=== PATIENT | female | born 1945 | race Caucasian/White ===

== ENCOUNTER → 2023-11-23 07:42 | Outpatient (REF) | payer BC, SELFPAY | LOC: RCS 07:42 | PROVIDERS: ATTENDING PHYSICIAN Internal Medicine Cardiovascular Disease; FAMILY PHYSICIAN Nurse Practitioner | DX: R01.1 Cardiac murmur, unspecified (principal); I48.0 Paroxysmal atrial fibrillation; I34.0 Nonrheumatic mitral (valve) insufficiency; I07.1 Rheumatic tricuspid insufficiency | CPT/HCPCS: 93306 ==

== ENCOUNTER 2023-12-10 06:50 | Day surgery (SDC) | payer BC, SELFPAY ==
[2023-11-30 06:45] VITALS: BMI 25.9
[2023-11-30 07:32] LABS: % Basophils 0.7 % (0-2); % Eosinophils 1.5 % (0-6); % Immature Granulocytes 0.2 % (0-0.5); % Lymphocytes 34.7 % (20.5-51.1); % Monocytes 11.1 % (1.7-9.3); % Neutrophils 51.8 % (42.2-75.2); Absolute Eosinophils 0.1 10^3/uL (0-0.7); Absolute Lymphocytes 1.4 10^3/uL (1.2-3.4); Absolute Monocytes 0.5 10^3/uL (0.1-0.6); Absolute Neutrophils 2.1 10^3/uL (1.4-6.5); Hematocrit 39.7 % (37.0-47.0); Hemoglobin 13.1 g/dL (12.0-16.0); Mean Corpuscular Volume 93.9 fL (81.0-99.0); Mean Platelet Volume 11.1 fL (7.4-10.4); Nucleated Red Blood Cells % 0 %; Platelet Count 139 10^3/uL (130-400); Red Blood Cell Count 4.23 10^6/uL (4.20-5.40); Red Cell Dist. Width 13.9 % (11.5-14.5); White Blood Cell Count 4.1 10^3/uL (4.8-10.8)
--- NOTE | 2023-11-30 07:44 | HPS.HSE ---
Family Physician
-
Family Physician: SUNIL Martinez
Chief Complaint
-
Severe mitral regurgitation.
History of Present Illness
The patient is a 77 year old female presenting today for severe mitral regurgitation. This was confirmed through a recent echocardiogram on 11/23/2023. She does note dyspnea with heavy exertion, such as walking up stairs, likely secondary
to this diagnosis. She also has a history of atrial fibrillation, which is a compelling factor for treatment of her mitral valve. It is advised the patient proceed with a transesophageal echocardiogram and left and right cardiac catheterization at
this time in preparation for possible mitral valve repair or replacement in the near future. She denies any current complaints today such as chest pain, shortness of breath at rest, nausea, vomiting, diarrhea, lightheadedness, dizziness, cough, sore
throat, or fever.
Medical History
Past Medical History
Past Medical History: Reports Other
Additional Past Medical History:
1. Severe mitral regurgitation.
2. Mild-moderate tricuspid regurgitation.
3. Mild aortic regurgitation.
4. Hyperlipidemia.
5. Paroxysmal atrial fibrillation with palpitations, pharmacological therapy with Metoprolol Succinate, oral anticoagulation with Eliquis.
6. Colon polyps.
7. Ulcerative colitis, diagnosed 1964.
8. Basal cell carcinoma, status post MOHS.
9. Osteopenia.
10. Mild leukopenia.
11. Asymptomatic hypoglycemia.
Past Surgical History: Reports Other
Additional Past Surgical History:
1. Bilateral tubal ligation.
2. MOHS.
3. Multiple colonoscopies.
Social History
Tobacco: Non-smoker
Alcohol: None
Personal:
Living: Other (She lives in a 2 story home with her . )
Family History
Family History: Not pertinent
Allergies / Home Medications
Allergy/Medication List:
Home medications:
1. Eliquis 5 mg p.o. twice a day.
2. Calcium carbonate 500 mg p.o. daily.
3. Metoprolol Succinate 25 mg p.o. every evening.
Allergies: No known allergies.
Review of Systems
-
A 12 point ROS was completed and negative except as noted: Yes
Physical Exam
Vital Signs
Blood pressure 118/65. Heart rate 58. Respirations 18. Pulse ox 99% on room air.
Height 5 feet, 5.5 inches. Weight 71.7 kg. BMI 25.9.
Physical Exam
General: Well Developed, Well Nourished and No Apparent Distress
HEENT: NormoCephalic, Moist mucous membranes, Atraumatic and PERRLA
Respiratory: Clear
Cardiac: Bradycardia (Sinus ) and Murmur (Soft, 2/6)
GI: Soft, Non Tender and Non Distended
Musculoskeletal: Normal Gait & Station
Skin: Warm and Dry
Neuro: AO x 3 and Nonfocal/grossly intact
Laboratory Results
-
11/30/23 06:53
DIAGNOSTIC STUDIES as of 11/30/2023: Sodium 141. Potassium 4.7. BUN 34. Creatinine 0.8. Glucose 54. Calcium 9.6. AST 27. ALT 19. Albumin 4.1.
DIAGNOSTIC STUDIES as of 12/03/2023: Sodium 141. Potassium 4.3. BUN 24. Creatinine 0.81. Glucose 90. Calcium 9.4. Hemoglobin A1c 5.3.
EKG 11/30/2023: Sinus bradycardia with sinus arrhythmia. Left axis deviation. Septal infarct, age undetermined.
Echocardiogram 11/23/2023: Rhythm is in atrial fibrillation today, heart rate 110s. Normal left ventricular systolic function. LV ejection fraction is 55-60%. Severe mitral regurgitation. Likely secondary to annular dilation with severely dilated
left atrium. Mild aortic regurgitation. Mildly dilated right ventricle with normal systolic function. Moderate/severe tricuspid regurgitation. Mildly elevated PASP. Estimated pulmonary artery pressure of 42 mmHg, assuming a right atrial pressure of
15 mmHg. Ectatic proximal ascending aorta: 3.6 cm.
Impression/Plan
-
IMPRESSION/PLAN:
1. Severe mitral regurgitation: The patient is in need of transesophageal echocardiogram and left and right cardiac catheterization in preparation for potential mitral valve repair/replacement. Her transesophageal echocardiogram will take place on
12/10/[address] Nicho Peres. Her left and right cardiac catheterization will also take place on 12/10/[address] Orlin Pickard. The benefits and risks of the procedure have been explained to the patient. The patient understands these
risks and wishes to proceed. She is aware to hold her Eliquis 2 days prior to her upcoming procedure. She will take a full dose Aspirin the first day she holds her Eliquis. She will then transition to a baby Aspirin daily up to and including the day
of her procedure.
[2023-11-30 08:26] LABS: Glucose 54 mg/dl (70-99)
[2023-11-30 08:27] LABS: ALT (SGPT) 19 U/L (0-35); AST (SGOT) 27 U/L (14-36); Albumin 4.1 g/dl (3.5-5.0); Alkaline Phosphatase 70 U/L (38-126); Blood Urea Nitrogen 34 mg/dl (7-17); Calcium 9.6 mg/dl (8.4-10.2); Carbon Dioxide 27 mmol/L (22-30); Chloride 106 mmol/L (98-107); Estimated Creatinine Clearance 54 ml/min; Potassium 4.7 mmol/L (3.5-5.1); Sodium 141 mmol/L (135-145); Total Bilirubin 0.7 mg/dl (0.2-1.3); Total Protein 6.6 g/dl (6.3-8.2); eGFR > 60.00
--- NOTE | 2023-11-30 08:51 | W.SUR.PREOP ---
Addendum entered and electronically signed by Ximena Madsen PA-C 12/08/23 09:56:
Given her critically low glucose result, the patient instead followed up with her PCP, Kathleen Herrera, pre-operatively.
Repeat glucose 90 and hemoglobin A1c 5.3 on 12/03/2023.
Results scanned into [employer].
Patient stable for her procedure on 12/10/2023.
Original Note:
Pre-Operative Surgical Note
-
Pt had a critical blood glucose of 54 this AM.
She reportedly was fasting. Denies any previous known episodes of hypoglycemia.
No history of diabetes.
Denies any abnormal symptoms such as lightheadedness or dizziness. Feels overall 'well' today.
I did advise that she carry candy in the event she does experience symptoms of hypoglycemia. Also said juice would be helpful in increasing her blood glucose.
Symptoms of hypoglycemia to look out for were explained.
Given her critically low result, I will have the patient return for a repeat blood glucose closer to her procedure date.
[2023-12-10] VITALS (9 sets, daily range): BP systolic 114–159; BP diastolic 53–68; BMI 24.6
--- NOTE | 2023-12-10 09:46 | ITS.CL.CATH ---
[facility] - Catheterization
Cardiac Catheterization
Procedure Report:
CARDIAC CATHETERIZATION REPORT
Date of Procedure: 12/10/2023
Referring: Orlin Pickard D.O.
Indication: Symptomatic moderate/severe mitral valve regurgitation, severe tricuspid valve regurgitation.
PROCEDURE:
1. Right heart catheterization.
2. Left heart catheterization.
3. Coronary angiography.
ACCESS:
6 Chadian right radial artery.
5 Chadian right antecubital vein.
CATHETERS:
1. 5 Chadian balloon wedge.
2. 5 Chadian JL 3.5.
3. 5 Chadian JR4.
HEMODYNAMIC DATA
Weight (kg): 71.2
AO (s/d/x mmHg): 144/76/110
LV (s/x mmHg): 144/20
PCWP (a/v/x mmHg): 22//20
PA (s/d/x mmHg): 41//27
RV (s/x mmHg): 41/10
RA (a/v/x mmHg): 15/17/10
SVC SvO2 (%): 76.1
PA SvO2 (%): 77.9
SaO2 (%): 97.6
Hbg (g/dL): 13.1
CO (L/min): 4.26
CI (L/min/m2): 2.34
TPG (mmHg): 7
PVR (Ordoñez Units): 1.64
SVR (dynes*seconds*cm^-5): 1878
AVO2 Diff (Volume %): 3.51
AV gradient (x, mmHg): None.
AV area (cm2): Normal.
LEFT VENTRICULOGRAPHY: Not performed.
CORONARY ANGIOGRAPHY
Dominance: Right.
Left Main: Normal size, bifurcating vessel. There is no coronary artery disease.
LAD: Normal size vessel giving rise to 2 significant diagonals. There is no coronary artery disease.
Ramus: Congenitally absent.
Circumflex: Normal size, nondominant vessel giving rise to 1 large marginal. There is no coronary artery disease.
RCA: Normal size, dominant vessel. There is no coronary artery disease.
INTERVENTIONS
None.
Closure Device: Vascular band for the right radial artery, manual pressure for the right antecubital vein.
Radiation dose (mGy): 121.82
DAP (cm2.Gy): 7.9054
Fluoroscopy time (minutes): 2.3
Sedation time (minutes): 7
CONCLUSIONS:
1. Right dominant circulation with no coronary artery disease.
2. Moderately elevated filling pressures (LVEDP = 20 mmHg, PCWP = 20 mmHg at 71.2 kg).
3. 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
4. Severe mitral and tricuspid valve insufficiency by echocardiography.
RECOMMENDATIONS:
1. Expectant management after cardiac catheterization via right radial approach.
2. Limited weight bearing on the right wrist for one week.
3. Discussion with CT surgery regarding optimal valve repair strategy.
4. Start furosemide 20 mg p.o. daily for reduction of filling pressures.
5. BMP in 1 week.
Copy to: Mendel Muller M.D., Orlin Pickard D.O., SUNIL Martinez
Orlin Pickard, , FACC, FACP
== END 2023-12-10 12:53 | disposition home or self-care (01) ==
LOC: CATH 06:50
PROVIDERS: ATTENDING PHYSICIAN Internal Medicine; FAMILY PHYSICIAN Nurse Practitioner; OTHER PHYSICIAN Internal Medicine Cardiovascular Disease
DX: I08.3 Combined rheumatic disorders of mitral, aortic and tricuspid valves (principal); R06.09 Other forms of dyspnea; E78.5 Hyperlipidemia, unspecified; I48.0 Paroxysmal atrial fibrillation; I27.29 Other secondary pulmonary hypertension; Z85.828 Personal history of other malignant neoplasm of skin; Z79.01 Long term (current) use of anticoagulants
CPT/HCPCS: 93312; 93320; 93325; 36415; 80053; 85025; 93005; 93460; C1894; Q9967

== ENCOUNTER → 2024-01-02 08:11 | Outpatient (REF) | payer BC, SELFPAY | LOC: RAD 08:11 | PROVIDERS: ATTENDING PHYSICIAN Thoracic Surgery (Cardiothoracic Vascular Surgery); FAMILY PHYSICIAN Nurse Practitioner; REFERRING PHYSICIAN Internal Medicine Cardiovascular Disease | DX: I34.0 Nonrheumatic mitral (valve) insufficiency (principal); I36.1 Nonrheumatic tricuspid (valve) insufficiency; Z01.818 Encounter for other preprocedural examination | CPT/HCPCS: 71250 ==

== ENCOUNTER 2024-01-11 05:00 | Inpatient (IN) | payer BC, MEDICARE, SELFPAY ==
[2024-01-04 08:36] VITALS: BMI 27.2
[2024-01-04 09:24] LABS: APTT 30.4 Sec (23.4-35.0); INR 1.22; PT 15.2 Sec (11.4-14.6)
[2024-01-04 09:28] LABS: % Basophils 0.3 % (0-2); % Eosinophils 0.9 % (0-6); % Immature Granulocytes 0.3 % (0-0.5); % Lymphocytes 37.5 % (20.5-51.1); % Monocytes 9.7 % (1.7-9.3); % Neutrophils 51.3 % (42.2-75.2); Absolute Lymphocytes 1.2 10^3/uL (1.2-3.4); Absolute Monocytes 0.3 10^3/uL (0.1-0.6); Absolute Neutrophils 1.6 10^3/uL (1.4-6.5); Hematocrit 40.7 % (37.0-47.0); Hemoglobin 13.6 g/dL (12.0-16.0); Mean Corp Hgb Conc. 33.4 g/dL (33.0-37.0); Mean Corpuscular Hgb 30.8 pg (27.0-31.0); Mean Corpuscular Volume 92.1 fL (81.0-99.0); Mean Platelet Volume 11.7 fL (7.4-10.4); Nucleated Red Blood Cells % 0 %; Platelet Count 143 10^3/uL (130-400); Red Blood Cell Count 4.42 10^6/uL (4.20-5.40); Red Cell Dist. Width 13.2 % (11.5-14.5); White Blood Cell Count 3.2 10^3/uL (4.8-10.8)
[2024-01-04 10:10] LABS: ALT (SGPT) 23 U/L (0-35); AST (SGOT) 29 U/L (14-36); Albumin 4.4 g/dl (3.5-5.0); Alkaline Phosphatase 73 U/L (38-126); Blood Urea Nitrogen 29 mg/dl (7-17); Calcium 9.7 mg/dl (8.4-10.2); Carbon Dioxide 25 mmol/L (22-30); Chloride 105 mmol/L (98-107); Direct Bilirubin 0.1 mg/dl (0.0-0.4); Estimated Creatinine Clearance 56 ml/min; Glucose 85 mg/dl (70-99); Potassium 4.3 mmol/L (3.5-5.1); Sodium 137 mmol/L (135-145); Total Bilirubin 1.1 mg/dl (0.2-1.3); Total Protein 6.8 g/dl (6.3-8.2); eGFR > 60.00
[2024-01-04 10:27] LABS: Urine Albumin Negative (Neg - Trace); Urine Bilirubin Negative (Negative); Urine Character Clear (Clear); Urine Color Yellow; Urine Glucose Negative (Negative); Urine Ketone Negative (Negative); Urine Leukocyte Trace (Negative); Urine Nitrite Negative (Negative); Urine Occult Blood Negative (Negative); Urine Urobilinogen Negative (Neg - 1+); Urine pH 6.5 (5.0-9.0)
[2024-01-04 10:51] LABS: Urine Red Blood Cell 0-2 /HPF (0-2)
--- NOTE | 2024-01-04 11:09 | CM ---
spoke to pt in PAT's, we discussed pre op mitral and tricauspid valve teaching including driving and sternal restrictions. she is prev very indep, lives with her husb in a 2 story home with 1 step to enter. she denies any dme's. she has the cardiac
educ book, soap and instructions. she is agreeable to a f/u visit from the ct transitional care nurses after dc. plan is for mitral and tricuspid valve surgery 01/10, cm role explained and all questions answered.
[2024-01-11] VITALS (18 sets, daily range): BP systolic 77–135; BP diastolic 46–92; BMI 26.7
[2024-01-11] MEDS: LOPRESSOR 25 MG PO (05:50)
[2024-01-11] MEDS: MAGNESIUM OXIDE 500 MG PO (05:50)
[2024-01-11] MEDS: PROTONIX 40 MG PO (05:51)
[2024-01-11] MEDS: BACTROBAN 2% OINTMENT 1 APPLIC NASAL ×2 (05:52→19:57)
--- NOTE | 2024-01-11 06:18 | W.CVOR.SURPR ---
[facility] Surgeon Immed Pre Op
-
I have examined this patient prior to performance of the scheduled procedure.
The patient's condition is unchanged from the time of the dictated/written History and
Physical and the patient is able to undergo the scheduled procedure.
Sternotomy MVrR + TVr + LA MAZE + BRET E
[2024-01-11 07:32] LABS: Urine Albumin Negative (Neg - Trace); Urine Bilirubin Negative (Negative); Urine Character Clear (Clear); Urine Color Yellow; Urine Glucose Negative (Negative); Urine Ketone Negative (Negative); Urine Leukocyte Negative (Negative); Urine Nitrite Negative (Negative); Urine Occult Blood Negative (Negative); Urine Urobilinogen Negative (Neg - 1+)
[2024-01-11 07:35] LABS: ACT+ - POC 90 Seconds (82-134)
[2024-01-11 07:38] LABS: B.E. - POC -3.1 mmol/L; Glucose - POC 87 mg/dl (65-99); HCO3 - POC 22 mmol/L (21-29); Hematocrit - POC 35 % PCV (37-47); Hemodilution- POC No; Hemoglobin Calculated - POC 11.9; Ionized Calcium - POC 1.21 mmol/L (1.12-1.27); PCO2 - POC 36 mmHg (35-45); PO2 - POC 368 mmHg (80-100); POC Comment PRE; Potassium - POC 3.7 mmol/L (3.6-5.0); Sodium - POC 143 mmol/L (135-145); pH - POC 7.38 (7.35-7.45)
[2024-01-11 08:33] LABS: ACT+ - POC 650 Seconds (82-134)
[2024-01-11 08:48] LABS: B.E. - POC -1.3 mmol/L; Glucose - POC 91 mg/dl (65-99); HCO3 - POC 21 mmol/L (21-29); Hematocrit - POC 29 % PCV (37-47); Hemodilution- POC Yes; Hemoglobin Calculated - POC 9.8; Ionized Calcium - POC 0.94 mmol/L (1.12-1.27); PCO2 - POC 25 mmHg (35-45); PO2 - POC 352 mmHg (80-100); POC Comment CPB; Sodium - POC 140 mmol/L (135-145); pH - POC 7.52 (7.35-7.45)
[2024-01-11 08:52] LABS: ACT+ - POC 777 Seconds (82-134)
[2024-01-11 09:10] LABS: B.E. - POC 0.7 mmol/L; Glucose - POC 125 mg/dl (65-99); HCO3 - POC 26 mmol/L (21-29); Hematocrit - POC 34 % PCV (37-47); Hemodilution- POC Yes; Hemoglobin Calculated - POC 11.5; Ionized Calcium - POC 1.07 mmol/L (1.12-1.27); O2 Saturation %Calculated-POC 99.9 5 (92-96); PCO2 - POC 41 mmHg (35-45); PO2 - POC 304 mmHg (80-100); POC Comment CPB; Potassium - POC 4.9 mmol/L (3.6-5.0); Sodium - POC 142 mmol/L (135-145); pH - POC 7.41 (7.35-7.45)
[2024-01-11 09:17] LABS: ACT+ - POC 697 Seconds (82-134)
[2024-01-11 09:44] LABS: B.E. - POC -0.5 mmol/L; Glucose - POC 159 mg/dl (65-99); HCO3 - POC 25 mmol/L (21-29); Hematocrit - POC 34 % PCV (37-47); Hemodilution- POC Yes; Hemoglobin Calculated - POC 11.5; O2 Saturation %Calculated-POC 99.9 5 (92-96); PCO2 - POC 46 mmHg (35-45); PO2 - POC 291 mmHg (80-100); POC Comment REWARM; Potassium - POC 4.9 mmol/L (3.6-5.0); Sodium - POC 143 mmol/L (135-145); pH - POC 7.35 (7.35-7.45)
[2024-01-11 09:46] LABS: ACT+ - POC 555 Seconds (82-134)
[2024-01-11 09:57] LABS: ACT+ - POC 109 Seconds (82-134)
[2024-01-11 10:00] LABS: B.E. - POC -1.9 mmol/L; Glucose - POC 145 mg/dl (65-99); HCO3 - POC 23 mmol/L (21-29); Hematocrit - POC 34 % PCV (37-47); Hemodilution- POC Yes; Hemoglobin Calculated - POC 11.4; Ionized Calcium - POC 1.43 mmol/L (1.12-1.27); O2 Saturation %Calculated-POC 99.9 5 (92-96); PCO2 - POC 39 mmHg (35-45); PO2 - POC 330 mmHg (80-100); POC Comment POST; Potassium - POC 4.5 mmol/L (3.6-5.0); Sodium - POC 143 mmol/L (135-145); pH - POC 7.38 (7.35-7.45)
--- NOTE | 2024-01-11 10:37 | W.PN.CT.SURG ---
CT Surgery Operative Note
-
CARDIAC SURGERY OPERATIVE REPORT
Preoperative Diagnosis: Type I and II mitral valve dysfunction with severe insufficiency with paroxysmal atrial fibrillation
Postoperative Diagnosis: Same
Procedure(s) Performed:
1. Standard sternotomy with aortic bicaval cannulation
2. Simple mitral valve repair [ring annuloplasty, 32 mm]
3. Tricuspid valve repair [30 mm band annuloplasty]
4. Open surgical ablation [left atrial maze using combination of RF ablation and cryo ablation]
5. Left atrial appendage exclusion [35 mm clip]
6. Placement of temporary atrial and ventricular pacing wires
7. Transesophageal echocardiography
Date of Surgery: 01/11/24
Comorbidities:
1. Paroxysmal atrial fibrillation
2. 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
3. HTN
4. HLD
5. Ulcerative colitis
6. Osteoporosis
Attending Surgeon: Mendel Muller MD, MS
Assistants: Gabriela Banegas PA-C (present and necessary to first aid instructor, retraction, suction, exposure, suture management, and wound closure under my direction)
Anesthesiology: Nirmal Orozco MD and Blane Hernandez CRNA
Scrub and Circulating RNs: Akanksha Yung RN, Lito Barrera RN
Calender Let Off Operator: Cassandra Obando CCP
Anesthesia: GETA
EBL: per perfusion records
Products: None
CPB Time: 90 minutes
Aortic Cross Clamp Time: 68 minutes
Indication(s) for Procedures: This is a 78-year-old female who recent developed worsening symptoms of shortness of breath and fatigue. She has known mitral valve insufficiency with paroxysmal atrial relation that she states she only knew about
starting in February 2023. Based on the size. Bilateral atria, I suspect she has had long-term atrial fibrillation that been undiagnosed. She had a mixture of type I and type II pathology of her mitral valve including annular dilatation and
bileaflet prolapse. She also had secondary tricuspid valve insufficiency due to annular dilatation. Her STS risk was calculated to be acceptable and she was offered double valve repair with left atrial ablation and left atrial appendage exclusion.
She accepted the risk and so we proceeded
Aortic Valve Description: Mild central aortic valve insufficiency, trileaflet.
Mitral Valve Description: Relatively normal-appearing leaflets, there was mild bileaflet prolapse with annular dilatation in both the AP and by commissural views. Anterior leaflet was relatively short at 2.8 cm.
Tricuspid Valve Description: Massively dilated annulus with eccentric tricuspid valve insufficiency directed towards the septal leaflet. The leaflets themselves appear to be normal.
Findings: Left ventricular ejection fraction preoperatively was normal with an EF of approximately 60% and no regional wall motion abnormalities. Following surgery her EF remained the same with no new regional wall motion abnormalities. RV was
normal in size and function. Her mitral valve was asymmetrically dilated mostly towards the P2 and P3 region. There is also dilated in the AP and by commissural aspects. The valve was repaired using a 32 mm ring annuloplasty secured in place with
15 nonpledgeted 2 Ethibond sutures using core knots. Dynamic inflation of the left ventricle demonstrated a competent mitral valve with good coaptation height. The tricuspid valve was repaired using a total of 10 nonpledgeted 2 Ethibond sutures
securing a [address] from the mid septal portion to the anterior septal commissure. Dynamic inflation of the RV demonstrated a competent valve with decent coaptation. After coming down on cardiopulmonary bypass, the mitral valve had no
residual insufficiency with a mean gradient of 1 across the valve. The tricuspid valve had none to trace residual tricuspid valve insufficiency with a mean gradient of 1. There is normal excursion of both leaflets on the mitral valve with no
systolic anterior motion. Left atrial appendage was verified to be free of any thrombus or debris preoperatively and totally occlusive flush the base with no residual color flow on Doppler. She was in sinus rhythm coming off cardiopulmonary
bypass, did not require any inotropic support, did not require any atrial ventricular pacing. No products were given. An open surgical ablation was performed using a combination of RF and cryoablation of the left atrium with the below listed
lesion set.
Ablation Lines:
MAZE Lesion Sets:
1. Box lesion to posterior LA wall
2. BRET lesion + BRET Exclusion + [employer] [place]
3. Coronary sinus lesion
4. Posterior mitral annular line toward P2/P3
Specimen(s): None.
Prosthesis:
1. BRET Clip, SN [id number]
2. 32mm Mason Physio II Annuloplasty Ring, SN [id number]
3. 30mm Medtronic Tri-Ad Annuloplasty Band, SN [id number]
Description of Procedure: The patient was taken to the operating room. Their identity and procedure to be performed were verified and they were positioned supine on the operating table. Induction via general anesthesia with endotracheal intubation
was performed and central venous access and arterial monitoring were inserted. A preoperative transesophageal echocardiogram was performed to assess cardiac function and valvular function. The patient was then prepped and draped from chin to feet in
a sterile fashion. A preoperative time-out was performed with all members of the team present. A midline chest incision was performed along with median sternotomy. The innominate vein was isolated. Full heparinization was given (a total of 35,000
units). We created a pericardial well. The aortic cannulation site was chosen where it was soft, pliable, and free of calcium. Cannulation was performed with an arterial cannula in the ascending aorta, angled metal tip cannular in the superior vena
cava and straight bendable cannula in the inferior vena cava. The arterial cannula line had an appropriate bounce and correlating pressures. Next, a root vent/antegrade cannula was inserted into the ascending aorta. The ACT was confirmed to be over
400 and retrograde autologous priming was performed before commencing cardiopulmonary bypass. The pulmonary artery was away from the aorta to facilitate a clamp site. Sondergaard�s groove was developed after creating the oblique sinus. I
then the SVC off the right pulmonary artery. We then used the encompass ablation clamp across the transverse sinus and oblique sinuses to perform 3 successful pairs of ablations effectively producing the posterior wall ablation with
PVI's. The aortic cross-clamp was placed after decreasing the flow on the bypass and mean arterial pressure. A total of 1.2L initial dose of antegrade Del-Nido cardioplegia solution was given and planned for re-dosing every 75 minutes as necessary.
There was rapid electro-mechanical arrest of the heart at 300 cc of cardioplegia. The left ventricle was observed for distention on echocardiogram and manual palpation. Cold slush was placed into a lap on the RV and we systemically cooled to 34
degrees centigrade.
Carbon dioxide was used to flood the field. I then medialized the heart in order to expose the left atrial appendage. The tip of the appendage was cut off and using the RF clamp I performed the left atrial appendage line down to connect the
pulmonary vein isolation line. It was then sized to a 35 mm clip which was applied flush to the base. Next, the mitral valve was accessed via the left atrium at the intra-atrial groove followed by valve analysis. An additional coronary sinus
lesion using cryo and a mitral annular line was performed here ensuring that they overlapped. The mitral valve was repaired as described above. The left ventricular vent was repositioned across the mitral valve into the left ventricular and the
left atrium was closed with a 3-0 prolene.
While the heart was still arrested, I opened the right atrium longitudinally after isolating the IVC and SVC with Vesseloops. Annular sutures were placed starting at the mid-portion of the septal leaflet avoiding the AV node and working
counter-clockwise toward the anteroseptal leaflet commissure. The tricuspid valve was repaired as described above and the swan was manually replaced into the RVOT. The patient was placed into steep Trendelenburg and the aortic cross clamp was
removed and flows were slowly brought back up while still under SVC/IVC isolation. The RA suture line was closed in two layers with 5-0 prolene in a running fashion with the clamp off and the heart beating.
The left atrial suture line was hemostatic. Transesophageal echocardiography revealed no evidence of systolic anterior motion and ventricular function was normal. Once de-airing was satisfactory the root vent was removed. After verifying acceptable
parameters, we initiated weaning from cardiopulmonary bypass. Once we were off cardiopulmonary bypass, the venous cannulas was clamped and removed sequentially. A test dose of protamine was administered and the patient was monitored for any adverse
reaction before resuming protamine. Once half of the protamine dose was delivered, pump suckers were turned off and the systolic blood pressure was lowered for aortic decannulation. The aortic cannula was removed and purse strings were tied down.
All cannulation sites were oversewn with a 4-0 prolene. The left atrial suture line was inspected and hemostasis was confirmed. Mediastinal hemostasis was obtained. Two #24 Brett drains were placed within the pericardium and a single #19 Brett into
the right hemithorax. The sternum was approximated with four #7 single and three #8 double stainless steel wires. Fascia was approximated with #1 vicryl suture. The subcutaneous, dermis and epidermis were closed in layers in a running fashion. The
skin wound was cleansed and dressed.
All instrument, sponge, and needle counts were confirmed to be correct x 2 at the end of the operation. The patient was transferred to the cardiac intensive care unit in critical but stable condition.
I, Dr. Mendel Muller, was present, scrubbed for, and performed all critical elements of this procedure.
Mendel Muller MD, MS
Cardiothoracic Surgeon
[facility]
This dictation was created using the [employer] dictation system. Please excuse any grammatical, typographical, or 'sound alike' errors
[2024-01-11 11:00] LABS: Glucose - Point of Care 133 mg/dl (70-99)
--- NOTE | 2024-01-11 11:00 | PTCARENOTE ---
Received patient from [facility] at 1045. Pt intubated and sedated on precedex gtt at 0.5mcg/kg/hr. Pt unresponsive. 8.0 ETT 24cm at the lip. SIMV 60% 12 500 5/5. Pt not over breathing the vent yet. POX 99%. Mediastinal chest tubes x2 y-sited to 1 atrium
to -20cm suction draining red fluid. Right pleural chest tube to -20cm suction draining red fluid. No air leaks, tidaling, or crepitus noted. Output WNL. SB on tele with rates in the 40s. BP supported with levophed on arrival and then controlled
with cardene per orders. CI 1.82, CT ENGINEERING SYSTEMS ANALYST notified. PA pressures 30s-40s/10s. CVP 12. Epicardial AV wires to back up, then per CT ENGINEERING SYSTEMS ANALYST, A-pacing initiated at 70/6/0.5. Bilateral radial and DP pulses palpable. +1 edema to bilateral ankles. Abdomen soft,
round, nontender. Hypoactive BS. Paris catheter intact draining adequate amounts of clear yellow urine. Sternal incision approximated with skin glue, pressure dressing noted to top of sternal incision, CDI. CT sites covered and dressing CDI. Right
IJ cordis and swan floated to 47cm. Right radial ashwini intact. All lines flushed, leveled, and zeroed. Right wrist 20g PIV intact. Insulin gtt infusing per Critical Care Glycemic Protocol. NSS KVOx2 infusing. See MAR for medication administration.
See worklist for complete nursing assessment. Post of labs, EKG, and CXR obtained.
[2024-01-11 11:09] LABS: B.E. -2.7 mmol/L; HCO3 21.8 mmol/L (21-28); Ionized Calcium 1.25 mMOL/L (1.15-1.33); O2 Saturation % 99.8 % (94-98); PCO2 36 mmHg (32-35); PO2 204 mmHg (83-108); Potassium 4.3 mMOL/L (3.5-5.1); Sodium 138 mMOL/L (136-145); pH 7.39 (7.35-7.45)
[2024-01-11 11:11] LABS: Hematocrit 32.7 % (37.0-47.0); Hemoglobin 11.1 g/dL (12.0-16.0); Platelet Count 99 10^3/uL (130-400)
--- NOTE | 2024-01-11 11:15 | PTCARENOTE ---
Per CT ACADEMIC ASSISTANT, need to pull ETT 2cm out, RT at bedside to do so. Repeat CXR ordered.
--- NOTE | 2024-01-11 11:15 | W.PN.CD ---
Addendum entered and electronically signed by Orlin Pickard DO 01/11/24 14:34:
Attestation: I have seen and examined the patient. I can confirm Ms. Pennington's findings and I agree with her assessment and plan as documented.
78-year-old female with paroxysmal atrial fibrillation, moderate to severe MR and moderate TR admitted for elective to valve repair.
The patient underwent successful ring annuloplasty of the mitral valve (#32 Mason physio 2 annuloplasty ring, serial #[id number]) and tricuspid valve (#30 Medtronic triad annuloplasty band, serial #[id number]) with left atrial MAZE and left atrial
appendage exclusion (#35 AtriClip, serial #[id number]).
She is seen in the CVICU. She is currently requiring norepinephrine 2 mcg/kg/min with satisfactory mean arterial pressure and cardiac index. She is currently on CPAP protocol and ABG shows that she is ready to extubate.
Continue routine postoperative care.
Maintain MAP >65 mmHg, cardiac index >2.2 L/min/m�.
Extubate when appropriate.
Chest tube/pain control per CT surgery.
Original Note:
Today's Communication / Plan
-
Follow telemetry
Impression / Plan
-
BACKGROUND: 78F with paroxysmal atrial fibrillation, moderate to severe mitral regurgitation, and moderate tricuspid regurgitation who presents for mitral valve repair
Civil Clerk: Dr. Pickard
Mitral valve repair [ring annuloplasty, 32 mm] and tricuspid valve repair [30 mm band annuloplasty] 01/11/[address] Muller
-Post valve repair EF unchanged without RWMA
-Postrepair MV mean gradient of 1, tricuspid valve with known to trace residual TR
-CI improved with pacing at 70bpm
-EKG with sinus bradycardia, EKG in am
Paroxysmal atrial fibrillation
-She had an open surgical ablation with valve repairs [left atrial maze using combination of RF ablation and cryo ablation]
-S/P BRET clip (35mm)
-Resumption of oral anticoagulation per surgery
SUBJECTIVE:
Intubated and sedated on mechanical ventilation.
Operative notes reviewed
Physical Exam
Vital Signs/Labs
Vital Signs
Temp Pulse Resp BP Pulse Ox
96.5 F L 80 12 119/67 99
01/11/24 11:00 01/11/24 11:05 01/11/24 11:00 01/11/24 11:00 01/11/24 11:05
01/10/24 01/11/24 01/12/24
06:59 06:59 06:59
Actual Weight 70.4 kg
PT 15.2 Sec (11.4-14.6) H 01/04/24 08:46
INR 1.22 01/04/24 08:46
APTT 30.4 Sec (23.4-35.0) 01/04/24 08:46
Physical Exam
Constitutional: No acute distress and Comfortable
EENT: Anicteric and Moist mucous membranes
Cardiovascular: Rhythm & rate is regular, Pedal edema is absent and S1S2 is normal
Respiratory: Lungs clear to auscul. and Other (ETT to mechanical ventilation)
GI: Soft, Distention absent and Flat
Neuro/Psych: Other (sedated but able to nod head)
Other: Skin (warm and dry without edema)
Data Reviewed
-
Date of Service: January 11, 2024
[2024-01-11 11:16] LABS: PT 16.9 Sec (11.4-14.6)
[2024-01-11 11:17] LABS: APTT 31.2 Sec (23.4-35.0)
[2024-01-11] MEDS: ANCEF 10 IV ×2 (11:19)
[2024-01-11] MEDS: NEURONTIN PO (11:19)
[2024-01-11] MEDS: NSS 500 IV (11:20)
[2024-01-11 11:25] LABS: Blood Urea Nitrogen 18 mg/dl (7-17); Estimated Creatinine Clearance 57 ml/min; Glucose 133 mg/dl (70-99); Magnesium 2.6 mg/dl (1.6-2.3)
--- NOTE | 2024-01-11 11:28 | W.PN.UPDATE ---
Update Note
Progress Note Update
78-year-old female was electively admitted on 01/11/2024 for mitral and tricuspid valve surgery due to severe mitral regurgitation and moderate tricuspid return agitation
IV fluids: 2000
U.O.:� 600
UF:� 2000
Blood:� none
Wires:� 2A/2V wires
Inotropes:� none
Pressors:� Levo @ 1
Sedatives:� Precedex
�
NEURO: sedated on Precedex, pupils +2mm B/L
RESP: #8OT @23cm> 500/60%/14/5. Lungs clear B/L. 2 mediastinal (50cc on arrival) and R pleural (0cc on arrival) chest tubes to -20cm suction. Sanguineous drainage
CV: RRR (SB @ 48) +S1, S2, no S3, no�rub, no murmur. Dermabond to median sternotomy. RIJ w/[place] locked @ 48cm. PA 30/; CVP 6; CI 1.82
ABD: round, soft, no BS
EXT: no edema, +2/4 DP pulses B/L, no femoral bruit, left radial A-line intact
: [place] with clear yellow urine
�
A/P: POD #0 s/p mitral valve repair #32 mm ring, tricuspid valve repair #30 mm band, open surgical ablation [left atrial maze using combination of RF ablation and cryo ablation], and left atrial appendage exclusion #35 mm clip
NEO: EF�65%, no MR, MV 3/1, no TR, TV 2/1. Very small PFO w/L>R shunt
- ETT low>repositioned
- wean and extubate
- will need instruction regarding antibiotic prophylaxis for dental and invasive procedures
- check TTE pre-discharge
- pull temporary pacing wires prior to chest tube removal
# PAF
CHADs-VASc score: 4. Stroke risk was 4.8% per year in >90,000 patients (the [place] Atrial Fibrillation Cohort Study) and 6.7% risk of stroke/TIA/systemic embolism
�- on Eliquis and Toprol at home
# acute surgical blood loss anemia-expected
- Hb 11.1>trend CBC
�
--- NOTE | 2024-01-11 11:39 | CM ---
Chart reviewed. Patient is in the OR today. Patient is independent of ADLS, lives with her in a 2 STH, 1 LORENA, 0 DME. Plan is for the patient to return home with CT Transitional RN. CM to follow
--- NOTE | 2024-01-11 11:47 | CON.INTV ---
Consultation
Consultation Request
Date/Time Consultation Requested: 01/10
Date/Time Consultation Performed: 01/10
Reason for Consultation: Critical care
Medical History
-
History of Present Illness:
History obtained from the chart as patient is currently intubated. 78-year-old female with history of mitral valve disease, paroxysmal atrial fibrillation. Patient has noticed progressive worsening of shortness of breath over the last year,
decreased stamina. Recent workup revealed progressive mitral valve disease. Patient is now status post sternotomy, simple mitral valve repair with ring annuloplasty, tricuspid valve repair, open surgical ablation, left atrial appendage exclusion.
Cardiopulmonary bypass time 90 minutes. We are asked to help from critical care standpoint postoperatively.
Presently, patient is waking up, on IMV, volume-cycled ventilation. She is spontaneously moving extremities, nodding head appropriately.
.
PMH: Osteoporosis, ulcerative colitis, hyperlipidemia. History of bilateral tubal ligation
Past Medical History
Past Medical History: None (See above)
Past Surgical History: None (See above)
Social History
Tobacco: Non-smoker
Alcohol: None
Drug: None
Personal:
Living: With Family
Employment: Retired
Family History
Family History: Reviewed & Not Pertinent (Father at age 92, mother with breast cancer and diabetes. Sister with history of stroke/PE, brother with heart disease)
Allergies / Home Medications
Allergies
Allergy/AdvReac Type Severity Reaction Status Date / Time
No Known Allergies Allergy Verified 01/01/24 11:05
Home Medications
�Medication �Instructions �Recorded �Confirmed �Last Taken �Type
apixaban 5 mg tablet (Eliquis) 5 mg PO BID #60 tabs 03/12/23 01/11/24 01/07/24 08:00 Rx
metoprolol succinate 25 mg 25 mg PO QPM 11/26/23 01/11/24 2 Days Ago History
tablet,extended release 24 hr ~01/09/24
furosemide 20 mg tablet (Lasix) 20 mg PO DAILY #90 tabs 12/10/23 01/11/24 2 Days Ago Rx
~01/09/24
calcium 400 mg 1 tab PO DAILY 01/01/24 01/11/24 3 Days Ago History
(carbonate)-magnesium 167 mg ~01/08/24
(oxide)-D3 133 unit tablet
(Calcium Magnesium plus D)
Review of Systems
-
Unable to Obtain full review of systems at this time due to: Patient Intubation
Vitals / Labs / Diagnostic Testing
Vital Signs
Temp Pulse Resp BP Pulse Ox
96.5 F L 80 12 119/67 97
01/11/24 11:00 01/11/24 11:05 01/11/24 11:00 01/11/24 11:00 01/11/24 11:20
Lab Data
01/11/24 10:56
Laboratory Results
01/11/24
10:56
PT 16.9 H
INR 1.40
APTT 31.2
pH 7.39
pCO2 36 H
pO2 204 H
HCO3 21.8
O2 Delivery Level
Diagnostic Testing:
Physical Exam
-
HEENT: Normocephalic, Anicteric and Other (Right IJ, right upper extremity A-line)
Cardiovascular: S1/S2, Regular Rhythm and Peripheral Edema (n)
Respiratory: Wheeze (n), Rales (n), Rhonchi (n) and Non-Labored Respirations
GI: Soft, Non Distended and Non Tender
Neurology: Other (Sedated but waking up, moving extremities)
Skin: Good Color and Other (n)
General: Comfortable
Assessment
-
78-year-old female with history of paroxysmal atrial fibrillation, mild pulm hypertension, mitral valve disease with progressive shortness of breath x 1 year, now status post mitral valve repair and tricuspid valve repair, open surgical ablation
01/11/2024. We are asked to help from critical care standpoint
S/p mitral valve repair (ring annuloplasty)
Tricuspid valve repair (annuloplasty)
01/11/2024
Severe mitral regurgitation/tricuspid regurgitation with progressive symptoms
Normal biventricular function, PA pressure 40's per RHC
Paroxysmal atrial fibrillation
s/p MAZE, RF ablation and cryoablation
s/p BRET clip
On Eliquis preadmission
Small PFO with sjeq-er-[id number] flow postoperative NEO
Conditions present prior to admission
Hyperlipidemia
Ulcerative colitis
Osteoporosis
Plan/recommendations
At this time, patient remains critically ill but stable.
Remains on volume-cycled ventilation, airway pressures adequate.
Chest x-ray unremarkable, no acute findings, no pneumothorax. ET tube appropriate
Remains on norepinephrine at 2 mcg, sedated with Precedex
Has not required any blood products
Chest tube output minimal
Required atrial pacing for bradycardia
Moving forward
Continue with management per CT surgery
Patient is waking up, moving extremities, nodding head appropriately
Anticipate extubation soon per CT surgery protocol
Follow hemoglobin, chest tube output
Follow blood sugars
Postoperative NEO with normal biventricular function, EF 65%, improved from 50% preoperatively
Small PFO is noted with [id number]-rj-[id number] flow
EKG postoperatively with bradycardia, now with atrial paced rhythm. Follow
Resume anticoagulation per CT surgery
Reviewed with critical care nursing, respiratory care
Will follow
TCCT 31 min
--- NOTE | 2024-01-11 11:50 | PTCARENOTE ---
Pt awakens spontaneously. Able to shake head yes/no appropriately. Able squeeze hands/wiggle toes to commands. Precedex turned off per orders. Awaiting more spontaneous breaths prior to cpap trial.
--- NOTE | 2024-01-11 12:00 | PTCARENOTE ---
Cpap trial attempted by RT. Pt apneic. Resumed SIMV settings.
[2024-01-11 12:03] LABS: Glucose - Point of Care 120 mg/dl (70-99)
[2024-01-11] MEDS: CARDENE 200 IV (12:07)
--- NOTE | 2024-01-11 12:55 | PTCARENOTE ---
Multiple apnea episodes on cpap trial. RT notified and placed back on SIMV settings. POX 98%.
[2024-01-11 13:06] LABS: Glucose - Point of Care 101 mg/dl (70-99)
[2024-01-11] MEDS: TYLENOL PO (13:15)
--- NOTE | 2024-01-11 13:40 | PTCARENOTE ---
RT at bedside to attempt cpap trial again, POX 97%.
[2024-01-11] MEDS: OFIRMEV 100 IV (13:41)
[2024-01-11 14:02] LABS: Glucose - Point of Care 90 mg/dl (70-99)
[2024-01-11 14:17] LABS: B.E. -2.9 mmol/L; HCO3 22.6 mmol/L (21-28); PCO2 41 mmHg (32-35); PO2 161 mmHg (83-108); Potassium 3.7 mMOL/L (3.5-5.1); pH 7.35 (7.35-7.45)
--- NOTE | 2024-01-11 14:30 | PTCARENOTE ---
Pt extubated 1430. POX 98% on 6L NC. Pt able to state her name and . IS completed to 500mL. Pt tolerated. Family at bedside.
--- NOTE | 2024-01-11 14:36 | RESPNOTE ---
patient extubated at 1430 without incident. 98% on 6L.
[2024-01-11 15:04] LABS: Glucose - Point of Care 90 mg/dl (70-99)
[2024-01-11] MEDS: KCL 50 IV ×2 (15:09→16:07)
[2024-01-11] MEDS: PACERONE PO (15:23)
[2024-01-11 15:29] LABS: Hematocrit 35.7 % (37.0-47.0); Hemoglobin 12.1 g/dL (12.0-16.0); Platelet Count 143 10^3/uL (130-400)
[2024-01-11] MEDS: TORADOL 15 MG IV (15:32)
[2024-01-11] MEDS: NEURONTIN 100 MG PO ×2 (15:33→21:55)
[2024-01-11] MEDS: LOW STRENGTH ASPIRIN 81 MG PO (15:33)
[2024-01-11] MEDS: ANCEF 5 IV (15:33)
[2024-01-11] MEDS: ROXICODONE 5 MG PO (16:03)
[2024-01-11 17:01] LABS: Glucose - Point of Care 109 mg/dl (70-99)
[2024-01-11] MEDS: FLEXERIL 5 MG PO (18:12)
[2024-01-11 18:58] LABS: Glucose - Point of Care 91 mg/dl (70-99)
--- NOTE | 2024-01-11 19:30 | PTCARENOTE ---
Received pt from daysksft; pt is resting in bed, AAOx4, states pain is 7/10, see MAR; 100% A paced on monitor, VSS; heart sounds audible, rub present, radial and DP pulses palpable, trace SY, temp epicardial AV-wires set to AAI rate of 80, MA of
60, Mv of 0.5; lung sounds clear, diminished at b/l bases, spo2 95% on 2LNC, x2 MS CT and right pleural to -20 wall suction, no air leaks, no tidaling, no crepitus; hypoactive BS x4 quadrants, abdomen soft non tender; pt voiding clear yellow urine
via blackburn catheter; Surgical sites maintained; Right IJ cordis, swan at 47, right radial A-line, and PIV all maintained, leveled, and zeroed; insulin and levophed gtt infusing; call webster within reach; will continue to monitor.
[2024-01-11] MEDS: SENOKOT-S 1 TABLET PO (19:56)
[2024-01-11] MEDS: DILAUDID 0.25 MG IV (19:56)
[2024-01-11] MEDS: SODIUM BICARBONATE 50 MEQ IV (20:40)
[2024-01-11 20:47] LABS: Glucose - Point of Care 96 mg/dl (70-99)
[2024-01-11] MEDS: TYLENOL 1000 MG PO (21:55)
--- NOTE | 2024-01-11 22:20 | PTCARENOTE ---
Pt assessment unchanged; pt resting comfortably in bed; 100% A paced on monitor, VSS; Bicarb ordered and given; Levo off @ 1945, pt's BP has tolerating, MAP >65; CI has been > 2 throughout the night, see VS for details; call webster within reach; will
continue to monitor.
[2024-01-11 22:48] LABS: Glucose - Point of Care 91 mg/dl (70-99)
--- NOTE | 2024-01-11 23:00 | PTCARENOTE ---
report received from previous RN, assumed care of pt. walking rounds done. pt in bed, AAOx4. pt denies any pain at this time. A.paced on monitor via epicardial wires, set to AAI 80. B/L radial and DP pulses palpable. heart tones clear, +rub. RT
radial art line intact, SBP 110's. RIJ cordis + [place] intact w KVOs infusing. last CI 2.66. PAPs ~30s/10s. CVP ~10. B/L breath sounds present. POX 99% on 2LNC. IS encouraged. CT x3 intact to -20cm wall suction, drainage WNL, no air leak present.
hypoactive bowel sounds present. pt tolerating ice chips. Insulin gtt infusing per glycemic protocol. blackburn catheter intact, draining CYU. UO adequate. all surgical sites stable. turning/repositioning pt Q2H and as needed. see worklist for full
assessment, VS, and interventions. pt resting comfortably.
[2024-01-12] VITALS (21 sets, daily range): BP systolic 93–120; BP diastolic 52–71; PULSE 85; O2SAT 96–99; BMI 27.1
[2024-01-12] MEDS: DILAUDID 0.5 MG IV (00:09)
[2024-01-12] MEDS: ANCEF 5 IV ×2 (00:10→08:47)
[2024-01-12 00:19] LABS: Glucose - Point of Care 99 mg/dl (70-99)
--- NOTE | 2024-01-12 01:06 | W.PN.CT ---
Today's Communication / Plan
-
Plan:
-No major issues overnight. Hemodynamically and neurologically intact
-Successfully extubated on 01/11/24 @ 1430
-Weaned off of Levophed gtt overnight, remains on insulin gtt per protocol. Holding AM dose of Lopressor and Amiodarone given soft BP/bradycardia overnight
-Last CI 2.5, U/O since OR 950 mL
-Required A-Pacing overnight d/t postop bradycardia with low indices. Currently in NSR @ 76 bpm. Appears to be in rate controlled a-fib @ 0615 when OOB into chair
-Cont. current meds (ASA, held Amiodarone last night d/t bradycardia, will likely resume Eliquis on POD#4 for hx PAF)
-Monitor chest tube output: 2meds 125/295, R pleurals 25/95
-D/C'd swan and a-line this AM @ 0445
-D/C'd blackburn @ 0600
-Telemetry phase today once off insulin gtt per protocol
-Maintain cordis
-Maintain temporary PW (will likely pull in 1-2 days)
-Wean off of O2 as tolerated
-Encourage use of IS
-OOB into chair/Ambulate
-Will repeat echo to reassess MV repair/TV repair before d/c home
Assessment / Plan
-
Assessment:
-S/p Standard sternotomy with aortic bicaval cannulation/Simple mitral valve repair [ring annuloplasty, 32 mm]/Tricuspid valve repair [30 mm band annuloplasty]/Open surgical ablation [left atrial maze using combination of RF ablation and cryo
ablation]/Left atrial appendage exclusion [35 mm clip], by Dr. Muller, 01/11/2024, pod#1
-Severe MR
-Severe TR
-PAF (on Eliquis @ home)
-Mild AI
-Dilated Asc. Aorta (3.3 cm)
-Small PFO
-LVEF 55% preop, improved to 65% postop per intraop NEO
-HTN
-HLD
-Ulcerative colitis
-Osteoporosis
-BCC S/p Moh's
-S/P b/l tubal ligation
-Acute postop blood loss/Anemia (stable without blood transfusion)
-Acute postop atelectasis
-Acute postop hypovolemia with subsequent hypervolemia
-Acute postop bradycardia requiring pacing overnight
Discussed patient care with: Cardiology, Nursing, Respiratory Therapy, Pharmacy and Care Team
Subjective
Procedure
S/p Standard sternotomy with aortic bicaval cannulation/Simple mitral valve repair [ring annuloplasty, 32 mm]/Tricuspid valve repair [30 mm band annuloplasty]/Open surgical ablation [left atrial maze using combination of RF ablation and cryo
ablation]/Left atrial appendage exclusion [35 mm clip], by Dr. Muller, 01/11/2024
-
Date of Service: January 12, 2024
Pt c/o incisional pain, otherwise feels well
Objective Data
-
PT 16.9 Sec (11.4-14.6) H 01/11/24 10:56
INR 1.40 01/11/24 10:56
APTT 31.2 Sec (23.4-35.0) 01/11/24 10:56
Vital Signs
Vital Signs
Temp Pulse Resp BP Pulse Ox
98.6 F 80 11 100/57 99
01/12/24 00:00 01/12/24 00:00 01/12/24 00:00 01/12/24 00:00 01/12/24 00:00
CT Intake/Output/Weight
01/11/24 01/11/24 01/12/24
06:59 18:59 06:59
Intake Total 654.8 / 872.2 217.4 / 872.2
Output Total 780 / 1150 370 / 1150
Balance -125.2 / -277.8 -152.6 / -277.8
SaO2: 99 (2L)
Physical Exam
-
General: Awake, Oriented and AOx3
Cardiovascular: Regular rate & rhythm, No Murmurs, Rub (likely friction rub from chest tubes) and No Gallop
Respiratory: Decreased Breath Sounds (at bases, otherwise clear)
Sternum: Stable
Incision: Clean, Dry, Intact and Dressing Intact
Extremities: No Edema
Data Reviewed
-
Lab Results: Results Reviewed
Medications: Active Meds Reviewed
Chest X-Ray: Report Reviewed and Image Reviewed
ECG: Report Reviewed and Image Reviewed
[2024-01-12 01:09] LABS: Glucose - Point of Care 93 mg/dl (70-99)
[2024-01-12 02:12] LABS: Glucose - Point of Care 89 mg/dl (70-99)
--- NOTE | 2024-01-12 03:00 | PTCARENOTE ---
no changes in assessment, pt VSS. pacer rate decreased to obtain EKG--pt now NSR 70's. last CI 2.44. POX 98% on RA. Insulin gtt maintained. AM labs drawn and sent. all surgical sites stable. pt resting between care.
[2024-01-12 03:14] LABS: Glucose - Point of Care 90 mg/dl (70-99)
[2024-01-12 03:36] LABS: Hematocrit 33.8 % (37.0-47.0); Hemoglobin 11.1 g/dL (12.0-16.0); Mean Corp Hgb Conc. 32.8 g/dL (33.0-37.0); Mean Corpuscular Hgb 31.1 pg (27.0-31.0); Mean Corpuscular Volume 94.7 fL (81.0-99.0); Platelet Count 93 10^3/uL (130-400); Red Blood Cell Count 3.57 10^6/uL (4.20-5.40); Red Cell Dist. Width 13.5 % (11.5-14.5); White Blood Cell Count 8.4 10^3/uL (4.8-10.8)
[2024-01-12 03:52] LABS: Blood Urea Nitrogen 19 mg/dl (7-17); Calcium 8.8 mg/dl (8.4-10.2); Carbon Dioxide 23 mmol/L (22-30); Chloride 112 mmol/L (98-107); Estimated Creatinine Clearance 57 ml/min; Glucose 87 mg/dl (70-99); Magnesium 2.2 mg/dl (1.6-2.3); Potassium 4.8 mmol/L (3.5-5.1); Sodium 140 mmol/L (135-145); eGFR > 60.00
[2024-01-12] MEDS: ALBUMIN 5% 250 IV (04:02)
--- NOTE | 2024-01-12 05:00 | PTCARENOTE ---
RT radial art line and RIJ Meherrin d/c'd per orders without incident. pt VSS.
[2024-01-12 05:06] LABS: Glucose - Point of Care 80 mg/dl (70-99)
[2024-01-12] MEDS: TYLENOL 1000 MG PO ×3 (05:47→22:31)
[2024-01-12] MEDS: DILAUDID 0.25 MG IV (05:49)
--- NOTE | 2024-01-12 06:15 | PTCARENOTE ---
pt assisted OOB to chair without difficulty. pt went into Afib on monitor, HR 50's-70's. BP 101/54. CT PA aware, no new orders.
--- NOTE | 2024-01-12 07:17 | W.PN.INTV ---
Today's Communication / Plan
Recommendations
Incentive spirometry, pain control, out of bed to chair
Chest tube management per CT surgery
Sinus bradycardia noted, atrial pacing rate decreased per cardiology
Patient transferred out of ICU. We will sign off. Please call with questions
Assessment
-
78-year-old female with history of paroxysmal atrial fibrillation, mild pulm hypertension, mitral valve disease with progressive shortness of breath x 1 year, now status post mitral valve repair and tricuspid valve repair, open surgical ablation
01/11/2024. We are asked to help from critical care standpoint
S/p mitral valve repair (ring annuloplasty)
Tricuspid valve repair (annuloplasty)
01/11/2024
Severe mitral regurgitation/tricuspid regurgitation with progressive symptoms
Normal biventricular function, PA pressure 40's per RHC
Paroxysmal atrial fibrillation
s/p MAZE, RF ablation and cryoablation
s/p BRET clip
On Eliquis preadmission
Small PFO with ygsz-jf-uiqxo flow postoperative NEO
Conditions present prior to admission
Hyperlipidemia
Ulcerative colitis
Osteoporosis
Plan/recommendations
At this time, patient r appears comfortable, extubated without difficulty 01/10
chest x-ray unremarkable without acute findings
chest tube #1 has been removed
Incentive spirometry being used with good technique
Moving forward
Continue with management per CT surgery
Continue with pain control, I-S, out of bed to chair
Follow hemoglobin, remained stable
Follow blood sugars
Postoperative NEO with normal biventricular function, EF 65%, improved from 50% preoperatively
Small PFO is noted with oblu-fx-evgzd flow
EKG postoperatively with bradycardia, now with atrial paced rhythm. EKG this a.m. with sinus bradycardia
Cardiology following. Atrial pacing rate has been decreased
Resume anticoagulation at discretion of CT surgery
Reviewed with critical care nursing, respiratory care
Patient transferred out of ICU
We will sign off. Please call with questions
Subjective Dataa
Subjective Data
Date of Service:
Date of Service: January 12, 2024
Subjective:
Patient is feeling better since chest tube has been discontinued. Sitting in chair, comfortable. Denies nausea, abdominal pain, diarrhea. Conversing without difficulty. Second chest tube remains in place
Objective Data
Data Reviewed
Vital Signs / I&O / Oxygen:
Vital Signs
Temp Pulse Resp BP Pulse Ox
98.2 F 76 31 101/56 96
01/12/24 05:00 01/12/24 06:00 01/12/24 05:30 01/12/24 05:00 01/12/24 05:30
Intake and Output
01/11/24 01/12/24 01/13/24
06:59 06:59 06:59
Intake Total 1044.6 / 1044.6
Output Total 1490 / 1490
Balance -445.4 / -445.4
SaO2 [CPAP/PSV] 97
SaO2 [SIMV] 98
SaO2 96
Nasal Cannula flow liters per 2
minute
Physical Exam
General: Comfortable
HEENT: Normocephalic and Anicteric
Cardiovascular: S1-S2, Regular Rhythm, Murmur (n), Rub (n) and Other (Chest incision intact)
Respiratory: Wheeze (n), Crackles (n), Rhonchi (n) and Other (Mild splinting)
GI: Soft, Non Distended and Non Tender
Neurology: Awake, Alert and No Motor Deficits (Moving all extremities)
Skin: Cyanosis (n), Jaundice (n) and Rash (n)
Labs/Micro/Reports
Lab Data
01/12/24 03:12
01/12/24 03:12
Laboratory Results
01/11/24 01/11/24
10:56 14:08
PT 16.9 H
INR 1.40
APTT 31.2
pH 7.39 7.35
pCO2 36 H 41 H
pO2 204 H 161 H
HCO3 21.8 22.6
O2 Delivery Level
--- NOTE | 2024-01-12 07:36 | W.PN.CD ---
Today's Communication / Plan
-
Incentive spirometry.
Ambulate when appropriate.
Chest tube/pain management per CT surgery.
Resume anticoagulation at CT surgery's discretion (but within 48 hours of atrial fibrillation onset).
Decrease atrial pacing rate over the course of the day to allow for iqugmiut conduction to recover.
Impression / Plan
-
Impression/Plan: 78F with paroxysmal atrial fibrillation, moderate to severe mitral regurgitation, and moderate tricuspid regurgitation who presents for two valve repair.
#Mitral valve regurgitation/Tricuspid valve regurgitation
-Chronic.
-S/P #32 Mason physio 2 annuloplasty ring (serial #[id number]) to mitral valve and #30 Medtronic triad annuloplasty band (serial #[id number]) to tricuspid valve, 01/11/2024, Dr. Muller.
-Post valve repair EF unchanged without RWMA.
-CI improved with pacing at 70bpm. Norepinephrine initially required at 2 mcg/kg/min, now off. Decrease PPM rate and monitor for iqugmiut sinus node recovery.
-Continue expectant post operative care.
-Encourage incentive spirometry.
-Ambulate when appropriate.
-Chest tube/pain management per CT surtery.
#Paroxysmal atrial fibrillation
-Chronic, stable.
-S/P MAZE during the MVR/TVR.
-S/P LAAL with #35mm Atriclip (serial number [id number]).
-She lapsed back into AF this morning.
-Rate control with metoprolol. I suspect she will convert back to NSR as we get farther from her surgery.
-Therapeutic anticoagulation at CT surgery's discretion. This should be started within 48 hours of her AF in case we would like to DC cardiovert her prior to discharge.
Subjective/Interval History:
Successful MVR/TVR, MAZE, LAAL yesterday.
Extubated to CA yesterday.
Weight is up 1.1 kg.
CI 2.49.
Platelets down to 93k.
DATA:
Cardiac Catheterization, 12/10/2023:
CONCLUSIONS:
1. Right dominant circulation with no coronary artery disease.
2. Moderately elevated filling pressures (LVEDP = 20 mmHg, PCWP = 20 mmHg at 71.2 kg).
3. 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
4. Severe mitral and tricuspid valve insufficiency by echocardiography.
NEO, 12/10/2023:
CONCLUSIONS
-Left ventricular ejection fraction is 55-60%.
-Severely dilated left atrium.
-Severely dilated right atrium.
-No thrombus detected in the left atrial appendage.
-Minimally thickened mitral valve leaflets with mild bileaflet prolapse.
-The MR ERO was 0.22 cm2 and calculated MR volume was 44 mL. Although these
measurements are consistent with moderate mitral regurgitation (possibly
underestimated secondary to sedation), upon visual assessment, there is likely
moderate to severe mitral regurgitation.
-Severe tricuspid regurgitation with Coanda effect present. Estimated pulmonary
arterial pressure was 100 mmHg, assuming a right atrial pressure of 3 mmHg;
severe pulmonary hypertension.
-Intact interatrial septum. No evidence for PFO via color-flow Doppler.
Physical Exam
Vital Signs/Labs
Vital Signs
Temp Pulse Resp BP Pulse Ox
36.8 C 76 31 101/56 96
01/12/24 05:00 01/12/24 06:00 01/12/24 05:30 01/12/24 05:00 01/12/24 05:30
01/10/24 01/11/24 01/12/24
11:59 11:59 11:59
Actual Weight 70.4 kg 71.5 kg
01/12/24 03:12
01/12/24 03:12
PT 16.9 Sec (11.4-14.6) H 01/11/24 10:56
INR 1.40 01/11/24 10:56
APTT 31.2 Sec (23.4-35.0) 01/11/24 10:56
Magnesium 2.2 mg/dl (1.6-2.3) 01/12/24 03:12
Physical Exam
Constitutional: No acute distress and Comfortable
EENT: Anicteric and Moist mucous membranes
Cardiovascular: Pedal edema is absent, JVD pressure is normal, Rhythm/rate is irregular, S1S2 is normal and Murmur/rub/gallop absent
Respiratory: Respiratory effort normal, Lungs clear to auscul., Wheeze Absent, Crackles Absent and Rhonchi Absent
GI: Soft, Distention absent, Flat, Non tender and Normal bowel sounds
Neuro/Psych: AO x 3
Data Reviewed
-
Date of Service: January 12, 2024
Medical Decision Making: Reviewed Test Results, Independent Historian Assessment, Test Interpretation and Review of Case with other Provider
EKG: Tracing Personally Visualized and interpreted and Report Reviewed by me
Echo: Report Reviewed by me
X-Ray/CT/US/MRI/NUC/PET: Image Personally Visualized and interpreted and Report Reviewed by me
Medical Tests (PFT, Pathology etc): Image Personally Visualized and interpreted and Report Reviewed by me
Labs: Labs Reviewed by me
Old Records: Reviewed
[2024-01-12 08:20] LABS: Glucose - Point of Care 87 mg/dl (70-99)
[2024-01-12 08:20] LABS: Glucose - Point of Care 89 mg/dl (70-99)
--- NOTE | 2024-01-12 08:30 | PTCARENOTE ---
Resumed care of patient. Walking rounds completed with previous RN. Pt assessed while she was sitting in the chair. Pt alert and oriented x2. Pt rates right chest/back pain 2/10. Denies shortness of breath and nausea. BEAN with equal strength
throughout. 2 assist to get back to bed. Underlying SR with intermittent Afib. Per Dr. Muller, A-pace via epicardial AV wires at 84bpm. BP stable 101/52. Bilateral radial and DP pulses palpable. Trace edema to ankles. +Rub. POX 98% on RA. Lungs
diminished in the bases. No cough noted. IS encouraged-1000mL achieved. Mediastinal chest tubes x2 y-sited to 1 atrium to -20cm suction draining serosanguineous fluid. Right pleural chest tube to -20cm suction draining serosanguineous fluid. No air
leaks, tidaling, crepitus noted. Abdomen soft, round, nontender. Good appetite. +BS. Due to void post blackburn removal. Sternal incision approximated with skin glue. Gauze roll d/c per CT NURSING SUPPORT WORKER, area approximated and intact. Chest tube dressing CDI. Right
IJ cordis intact. Right wrist 20g PIV intact infusing insulin gtt per Critical Care Glycemic Protocol. See MAR for medication administration. see worklist for complete nursing assessment. Plan of care reviewed and patient in agreement.
--- NOTE | 2024-01-12 08:40 | W.PN.ANS.POP ---
Anesthesia Post Operative
- Anesthesia Post Op Note
Vital Signs Stable-See Nursing Note: Yes
Airway Patent: Yes
Adequate Pain Control: Yes
Change in Mental Status: No
Current Postoperative Nausea & Vomiting: No
Anesthesia Complications: No
General Anesthetic Recall: No
Unplanned Admission: No
Post Op Hydration Adequate: Yes
- -
Pt awake and alert- OOB to chair. Comfortable, no N/v, VSS, no anesthesia related c/o at time of post visit.
[2024-01-12] MEDS: LIDOCAINE 4% PATCH 1 PATCH TOPICAL (08:47)
[2024-01-12] MEDS: BACTROBAN 2% OINTMENT 1 APPLIC NASAL ×2 (08:48→20:40)
[2024-01-12] MEDS: FLUSH (NSS) 1 FLUSH IV (08:48)
[2024-01-12] MEDS: MAGNESIUM OXIDE 500 MG PO ×2 (08:49→20:40)
[2024-01-12] MEDS: NEURONTIN 100 MG PO ×3 (08:49→22:30)
[2024-01-12] MEDS: PROTONIX 40 MG PO (08:52)
[2024-01-12] MEDS: LOW STRENGTH ASPIRIN 81 MG PO (08:52)
[2024-01-12] MEDS: SENOKOT-S 1 TABLET PO ×2 (08:52→20:40)
[2024-01-12] MEDS: PACERONE 200 MG PO ×3 (08:52→22:31)
[2024-01-12] MEDS: VITAMIN C 500 MG PO ×2 (08:52→20:40)
--- NOTE | 2024-01-12 09:30 | PTCARENOTE ---
Pt assisted to bed. Right pleural chest tube d/c per orders. Pt tolerated. New dressing applied.
[2024-01-12] MEDS: NSS IV (09:44)
[2024-01-12 10:50] LABS: Glucose - Point of Care 171 mg/dl (70-99)
--- NOTE | 2024-01-12 12:20 | PTCARENOTE ---
Pt reassessed. VSS. A-paced with occasional PACs on tele with rates in the 80s. BP stable 101/61. POX 96% on RA. Surgical sites stable. CT output WNL. Pt voided clear yellow urine in the toilet, unable to be measured (missed hat). Lines intact, NSS
KVO infusing. insulin gtt d/c per orders.
[2024-01-12] MEDS: FERRLECIT 110 MG IV (14:05)
--- NOTE | 2024-01-12 14:23 | CM ---
Chart reviewed. Patient is independent of ADLS, lives with her in a 2 STH, 1 LORENA, 0 DME. Plan is for the patient to return home with CT Transitional RN. CM to follow
[2024-01-12] MEDS: ROXICODONE 2.5 MG PO (16:26)
--- NOTE | 2024-01-12 16:30 | PTCARENOTE ---
Pt reassessed. VSS. A-paced with PACs on tele with rates in the 80s. BP stable 111/60. POX 99%. Surgical sites stable. Lines remains intact. Voided 200mL dalton urine in the toilet. Pt then ambulated 100' in the [place], tolerated. Seated in the chair.
[2024-01-12] MEDS: FLEXERIL 5 MG PO (17:51)
--- NOTE | 2024-01-12 20:50 | PTCARENOTE ---
Assumed care of pt from dayshift RN. Pt awake, alert, and oriented. No c/o pain at this time. Pt A-paced on the monitor. Temporary epicardial A/V wires set to AAI 80/8/0.5. HR 80s. BP 108/64. MAP 76. Palpable pulses. Trace bilateral LE edema. Pt on
RA. POX 95%. Lung sounds decreased at the base. IS and deep breathing encouraged. Mediastinal CTx2 to -20 suction, and output WNL. Abdomen soft/nontender. +BS. Pt voiding in the bathroom w/ assist x1. Sternal incision approximated and GABRIELLE. Right IJ
cordis and PIVx1 CDI. Pt repositioned in bed. See worklist for full nursing assessment and interventions. Call webster within reach.
[2024-01-13] VITALS (11 sets, daily range): BP systolic 87–114; BP diastolic 50–72; PULSE 59; O2SAT 96–99; BMI 27.4
--- NOTE | 2024-01-13 00:32 | PTCARENOTE ---
No acute changes in assessment. Remains A-paced on the monitor. HR 80s. BP 102/58. Pt on RA. POX 94%. CT assessment unchanged from previous. Pt resting in bed. No c/o pain. Call webster within reach.
[2024-01-13] MEDS: FLEXERIL 5 MG PO (01:57)
[2024-01-13 04:03] LABS: Hematocrit 32.3 % (37.0-47.0); Hemoglobin 10.5 g/dL (12.0-16.0); Mean Corp Hgb Conc. 32.5 g/dL (33.0-37.0); Mean Corpuscular Hgb 30.8 pg (27.0-31.0); Mean Corpuscular Volume 94.7 fL (81.0-99.0); Mean Platelet Volume 12.3 fL (7.4-10.4); Platelet Count 101 10^3/uL (130-400); Red Blood Cell Count 3.41 10^6/uL (4.20-5.40); Red Cell Dist. Width 13.9 % (11.5-14.5); White Blood Cell Count 8.3 10^3/uL (4.8-10.8)
--- NOTE | 2024-01-13 04:11 | PTCARENOTE ---
No acute changes in assessment. Pt A-paced on the monitor. HR 80s. BP 97/60. RA. POX 95%. Labs drawn and sent. EKG obtained w/ CTPA at the bedside to pause temporary pacemaker. Pt repositioned in bed. Denies pain at this time. Call webster within
reach.
[2024-01-13 04:30] LABS: Blood Urea Nitrogen 27 mg/dl (7-17); Calcium 8.8 mg/dl (8.4-10.2); Carbon Dioxide 28 mmol/L (22-30); Chloride 105 mmol/L (98-107); Estimated Creatinine Clearance 75 ml/min; Glucose 108 mg/dl (70-99); Magnesium 2.3 mg/dl (1.6-2.3); Potassium 4.9 mmol/L (3.5-5.1); Sodium 134 mmol/L (135-145); eGFR > 60.00
--- NOTE | 2024-01-13 05:23 | W.PN.CT ---
Today's Communication / Plan
-
-pod #2
-no significant issues overnight, A&O x4
-a-paced @ 80 bpm overnight (intrinsic rhythm appears nsr with PACs). Follow am ECG.
-BB held d/t postop bradycardia, continued on po Amio.
-CT output: 2 meds 90/255 in 12/24 hrs
-on Eliquis preop for paf
-current meds (ASA, Amio, Protonix, iv iron, vit C)
-weaned off O2 - pOx 94% on RA
-encourage IS, OOB, ambulate
Assessment / Plan
-
Assessment:
-S/p Standard sternotomy with aortic bicaval cannulation/Simple mitral valve repair [ring annuloplasty, 32 mm]/Tricuspid valve repair [30 mm band annuloplasty]/Open surgical ablation [left atrial maze using combination of RF ablation and cryo
ablation]/Left atrial appendage exclusion [35 mm clip], by Dr. Muller, 01/11/2024, pod#2
-Severe MR
-Severe TR
-PAF (on Eliquis @ home)
-Mild AI
-Dilated Asc. Aorta (3.3 cm)
-Small PFO
-LVEF 55% preop, improved to 65% postop per intraop NEO
-HTN
-HLD
-Ulcerative colitis
-Osteoporosis
-BCC S/p Moh's
-S/P b/l tubal ligation
-Acute postop blood loss/Anemia (stable without blood transfusion)
-Acute postop atelectasis
-Acute postop hypovolemia with subsequent hypervolemia
-Acute postop bradycardia requiring pacing postop- BB held
Discussed patient care with: Nursing and Care Team
Subjective
Procedure
S/p Standard sternotomy with aortic bicaval cannulation/Simple mitral valve repair [ring annuloplasty, 32 mm]/Tricuspid valve repair [30 mm band annuloplasty]/Open surgical ablation [left atrial maze using combination of RF ablation and cryo
ablation]/Left atrial appendage exclusion [35 mm clip], by Dr. Muller, 01/11/2024
-
Date of Service: January 13, 2024
Objective Data
-
PT 16.9 Sec (11.4-14.6) H 01/11/24 10:56
INR 1.40 01/11/24 10:56
APTT 31.2 Sec (23.4-35.0) 01/11/24 10:56
Vital Signs
Vital Signs
Temp Pulse Resp BP Pulse Ox
98.8 F 84 18 102/58 94
01/13/24 00:23 01/13/24 00:23 01/13/24 00:23 01/13/24 00:23 01/13/24 00:23
CT Intake/Output/Weight
01/12/24 01/12/24 01/13/24
06:59 18:59 06:59
Intake Total 389.8 / 1044.6 680.9 / 730.9 50 / 730.9
Output Total 710 / 1490 375 / 685 310 / 685
Balance -320.2 / -445.4 305.9 / 45.9 -260 / 45.9
SaO2: 94
Physical Exam
-
General: Awake and AOx3
Cardiovascular: Regular rate & rhythm, No Murmurs and No Rub
Respiratory: Decreased Breath Sounds
Sternum: Stable
Incision: Clean, Dry and Intact
Extremities: Edema +1 (2+ DP on R and 1+ DP on L)
Data Reviewed
-
Lab Results: Results Reviewed
Medications: Active Meds Reviewed
Chest X-Ray: Report Reviewed and Image Reviewed
ECG: Report Reviewed and Image Reviewed
[2024-01-13] MEDS: TYLENOL 1000 MG PO ×3 (06:20→19:31)
[2024-01-13] MEDS: PROTONIX 40 MG PO (08:21)
[2024-01-13] MEDS: LOW STRENGTH ASPIRIN 81 MG PO (08:21)
[2024-01-13] MEDS: VITAMIN C 500 MG PO ×2 (08:21→19:30)
[2024-01-13] MEDS: NEURONTIN 100 MG PO ×3 (08:21→22:00)
[2024-01-13] MEDS: MAGNESIUM OXIDE 500 MG PO ×2 (08:21→19:30)
[2024-01-13] MEDS: SENOKOT-S 1 TABLET PO ×2 (08:21→19:30)
[2024-01-13] MEDS: BACTROBAN 2% OINTMENT 1 APPLIC NASAL ×2 (08:22→19:31)
[2024-01-13] MEDS: PACERONE 200 MG PO (08:22)
[2024-01-13] MEDS: LIDOCAINE 4% PATCH 1 PATCH TOPICAL (08:22)
[2024-01-13] MEDS: LASIX 20 MG PO (08:28)
--- NOTE | 2024-01-13 10:31 | PTCARENOTE ---
assumed care of pt from previous shift RN, diane on tele w HR 60, epicardial AV wires in place- insulated. Lungs clr, pox 96% on RA. +bs, tolerating po intake, voids spontaneously. Post op sites intact, CTs removed as ordered. plan of care reviewed w
the pt and questions encouraged.
--- NOTE | 2024-01-13 10:37 | CM ---
Chart reviewed. Patient is independent of ADLS, lives with her in a 2 [address], 1 [facility], 0 DME. Patient was OOB sitting in the chair. Plan is for the patient to return home. CM to follow
--- NOTE | 2024-01-13 12:09 | PTCARENOTE ---
VSS, afib maintained on tele w HR 55-60's, bp stable, pain well controlled.
[2024-01-13] MEDS: NSS 500 IV (12:53)
[2024-01-13] MEDS: FERRLECIT 110 MG IV (12:54)
--- NOTE | 2024-01-13 13:53 | W.PN.CD ---
Today's Communication / Plan
-
Diuresis tomorrow.
Incentive spirometry.
Ambulate.
Impression / Plan
-
Impression/Plan: 78F with paroxysmal atrial fibrillation, moderate to severe mitral regurgitation, and moderate tricuspid regurgitation who presents for two valve repair.
#Mitral valve regurgitation/Tricuspid valve regurgitation
-Chronic.
-S/P #32 Mason physio 2 annuloplasty ring (serial #[id number]) to mitral valve and #30 Medtronic triad annuloplasty band (serial #[id number]) to tricuspid valve, 01/11/2024, Dr. Muller.
-Post valve repair EF unchanged without RWMA.
-Continue expectant post operative care.
-Encourage incentive spirometry.
-Ambulate when appropriate.
-She may need diuresis soon.
#Paroxysmal atrial fibrillation
-Chronic, stable.
-S/P MAZE during the MVR/TVR.
-S/P LAAL with #35mm Atriclip (serial number [id number]).
-Intermittently in AF vs. A-paced.
-Rate control with metoprolol. I suspect she will convert back to NSR as we get farther from her surgery.
-Therapeutic anticoagulation at CT surgery's discretion. This should be started within 48 hours of her AF in case we would like to DC cardiovert her prior to discharge.
Subjective/Interval History:
Nursing documents A-paced at 80 bpm vs. AF in the 60's.
Weight is up 0.9 kg from yesterday, 2 kg from admission.
Hbg down to 10.5 (<-- 11.5 <-- 12.1).
Chest tubes discontinued this morning.
SaO2 96% on room air.
EKG shows sinus shanel with PAC's and occasional junctional escape beats. Amiodarone on hold.
DATA:
Cardiac Catheterization, 12/10/2023:
CONCLUSIONS:
1. Right dominant circulation with no coronary artery disease.
2. Moderately elevated filling pressures (LVEDP = 20 mmHg, PCWP = 20 mmHg at 71.2 kg).
3. 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
4. Severe mitral and tricuspid valve insufficiency by echocardiography.
NEO, 12/10/2023:
CONCLUSIONS
-Left ventricular ejection fraction is 55-60%.
-Severely dilated left atrium.
-Severely dilated right atrium.
-No thrombus detected in the left atrial appendage.
-Minimally thickened mitral valve leaflets with mild bileaflet prolapse.
-The MR ERO was 0.22 cm2 and calculated MR volume was 44 mL. Although these
measurements are consistent with moderate mitral regurgitation (possibly
underestimated secondary to sedation), upon visual assessment, there is likely
moderate to severe mitral regurgitation.
-Severe tricuspid regurgitation with Coanda effect present. Estimated pulmonary
arterial pressure was 100 mmHg, assuming a right atrial pressure of 3 mmHg;
severe pulmonary hypertension.
-Intact interatrial septum. No evidence for PFO via color-flow Doppler.
Physical Exam
Vital Signs/Labs
Vital Signs
Temp Pulse Resp BP Pulse Ox
36.8 C 67 16 98/50 96
01/13/24 13:00 01/13/24 12:54 01/13/24 13:00 01/13/24 12:54 01/13/24 13:00
01/12/24 01/13/24 01/14/24
11:59 11:59 11:59
Actual Weight 71.5 kg 72.4 kg
01/13/24 03:50
01/13/24 03:50
PT 16.9 Sec (11.4-14.6) H 01/11/24 10:56
INR 1.40 01/11/24 10:56
APTT 31.2 Sec (23.4-35.0) 01/11/24 10:56
Magnesium 2.3 mg/dl (1.6-2.3) 01/13/24 03:50
Physical Exam
Constitutional: No acute distress and Comfortable
EENT: Anicteric and Moist mucous membranes
Cardiovascular: Rhythm & rate is regular, Pedal edema is absent, JVD pressure is normal, S1S2 is normal and Murmur/rub/gallop absent
Respiratory: Respiratory effort normal, Lungs clear to auscul., Wheeze Absent, Crackles Absent and Rhonchi Absent
GI: Soft, Distention absent, Flat, Non tender and Normal bowel sounds
Neuro/Psych: AO x 3
Data Reviewed
-
Date of Service: January 13, 2024
Medical Decision Making: Reviewed Test Results, Independent Historian Assessment, Test Interpretation and Review of Case with other Provider
EKG: Tracing Personally Visualized and interpreted and Report Reviewed by me
Echo: Tracing Personally Visualized and interpreted and Report Reviewed by me
X-Ray/CT/US/MRI/NUC/PET: Image Personally Visualized and interpreted and Report Reviewed by me
Medical Tests (PFT, Pathology etc): Image Personally Visualized and interpreted and Report Reviewed by me
Labs: Labs Reviewed by me
Old Records: Reviewed
--- NOTE | 2024-01-13 16:09 | PTCARENOTE ---
VSS, afib remains controlled on tele.
--- NOTE | 2024-01-13 20:00 | PTCARENOTE ---
Assumed care of patient @ 1900. received pt sitting in chair, AOx3. VSS on RA. Appears to be going in and out of sinus shanel/slow afib. BP stable. AV wires insulated. +pulses, - Edema. Lungs clear on room air satting mid 90s. Belly soft, benign.
Voiding clear yellow urine in bathroom. Sternum STRAWHAT BLOCKING OPERATOR with glue, CT dressing CDI. R IJ cordis and PIV r wrist patent . assisted pt to bathroom and into bed. resting comfortably with call webster within reach .
[2024-01-14] VITALS (10 sets, daily range): BP systolic 102–144; BP diastolic 49–78; BMI 27.8
--- NOTE | 2024-01-14 00:13 | PTCARENOTE ---
pt walked to bathroom with steady gait, voided 200. Slow AFIB on tele HR 50s-60s. Back in bed, resting comfortably with call webster within reach .
--- NOTE | 2024-01-14 05:00 | PTCARENOTE ---
lab work drawn and sent . pt assisted to bathroom and then to chair with steady gait. call webster within reach .
[2024-01-14] MEDS: TYLENOL 1000 MG PO ×2 (05:20→20:42)
--- NOTE | 2024-01-14 05:43 | W.PN.CT ---
Today's Communication / Plan
-
-pod #3
-no issues overnight.
-NSR with occasional PACs overnight
-labs pending
-consider Lasix
-ambulate, encourage IS
-holding BB and Amio for junctional/shanel earlier
-plans to restart Eliquis 7
-will need pw cut prior to d/c
Assessment / Plan
-
Assessment:
-S/p Standard sternotomy with aortic bicaval cannulation/Simple mitral valve repair [ring annuloplasty, 32 mm]/Tricuspid valve repair [30 mm band annuloplasty]/Open surgical ablation [left atrial maze using combination of RF ablation and cryo
ablation]/Left atrial appendage exclusion [35 mm clip], by Dr. Muller, 01/11/2024, pod#3
-Severe MR
-Severe TR
-PAF (on Eliquis @ home)
-Mild AI
-Dilated Asc. Aorta (3.3 cm)
-Small PFO
-LVEF 55% preop, improved to 65% postop per intraop NEO
-HTN
-HLD
-Ulcerative colitis
-Osteoporosis
-BCC S/p Moh's
-S/P b/l tubal ligation
-Acute postop blood loss/Anemia (stable without blood transfusion)
-Acute postop atelectasis
-Acute postop hypovolemia with subsequent hypervolemia
-Acute postop bradycardia requiring pacing postop- BB and Amio held
Discussed patient care with: Nursing and Care Team
Subjective
Procedure
S/p Standard sternotomy with aortic bicaval cannulation/Simple mitral valve repair [ring annuloplasty, 32 mm]/Tricuspid valve repair [30 mm band annuloplasty]/Open surgical ablation [left atrial maze using combination of RF ablation and cryo
ablation]/Left atrial appendage exclusion [35 mm clip], by Dr. Muller, 01/11/2024
-
Date of Service: January 14, 2024
Objective Data
-
PT 16.9 Sec (11.4-14.6) H 01/11/24 10:56
INR 1.40 01/11/24 10:56
APTT 31.2 Sec (23.4-35.0) 01/11/24 10:56
Vital Signs
Vital Signs
Temp Pulse Resp BP Pulse Ox
98.7 F 63 16 114/61 94
01/13/24 19:30 01/14/24 05:18 01/14/24 00:00 01/14/24 05:18 01/14/24 00:00
CT Intake/Output/Weight
01/13/24 01/13/24 01/14/24
06:59 18:59 06:59
Intake Total 110 / 790.9 130 / 180 50 / 180
Output Total 575 / 950 700 / 1100 400 / 1100
Balance -465 / -159.1 -570 / -920 -350 / -920
SaO2: 94
Physical Exam
-
General: Awake and AOx3
Cardiovascular: Regular rate & rhythm, No Murmurs and No Rub
Respiratory: Rales (at bases. No wheeze) and Decreased Breath Sounds
Sternum: Stable
Incision: Clean, Dry and Intact
Extremities: Edema +1
Data Reviewed
-
Lab Results: Results Reviewed
Medications: Active Meds Reviewed
Chest X-Ray: Report Reviewed and Image Reviewed
ECG: Report Reviewed and Image Reviewed
[2024-01-14 05:58] LABS: Hemoglobin 10.4 g/dL (12.0-16.0); Mean Corp Hgb Conc. 33.5 g/dL (33.0-37.0); Mean Corpuscular Hgb 30.9 pg (27.0-31.0); Mean Platelet Volume 12.3 fL (7.4-10.4); Platelet Count 96 10^3/uL (130-400); Red Blood Cell Count 3.37 10^6/uL (4.20-5.40); White Blood Cell Count 7.3 10^3/uL (4.8-10.8)
[2024-01-14 06:05] LABS: Blood Urea Nitrogen 18 mg/dl (7-17); Calcium 8.6 mg/dl (8.4-10.2); Carbon Dioxide 28 mmol/L (22-30); Chloride 103 mmol/L (98-107); Estimated Creatinine Clearance 75 ml/min; Glucose 91 mg/dl (70-99); Magnesium 2.1 mg/dl (1.6-2.3); Potassium 4.4 mmol/L (3.5-5.1); Sodium 135 mmol/L (135-145); eGFR > 60.00
--- NOTE | 2024-01-14 07:00 | PTCARENOTE ---
Bedside walking rounds report received. Patient seen on rounds oob in chair on room air and tolerating well. Oriented x 3. Denies pain. Plan diurese, and dc cordis today. Ambulate and possible home tomorrow. NSR with PAF and 1.2 sec pause rates in
the 70's.
[2024-01-14] MEDS: BACTROBAN 2% OINTMENT 1 APPLIC NASAL ×2 (08:13→20:42)
[2024-01-14] MEDS: LASIX 40 MG IV (08:13)
[2024-01-14] MEDS: LOW STRENGTH ASPIRIN 81 MG PO (08:14)
[2024-01-14] MEDS: SENOKOT-S 1 TABLET PO ×2 (08:14→20:42)
[2024-01-14] MEDS: NEURONTIN 100 MG PO ×3 (08:14→20:42)
[2024-01-14] MEDS: PROTONIX 40 MG PO (08:14)
[2024-01-14] MEDS: VITAMIN C 500 MG PO ×2 (08:14→20:42)
[2024-01-14] MEDS: MAGNESIUM OXIDE 500 MG PO ×2 (08:14→20:42)
[2024-01-14] MEDS: LIDOCAINE 4% PATCH 1 PATCH TOPICAL (08:15)
[2024-01-14] MEDS: NSS IV (08:16)
--- NOTE | 2024-01-14 12:00 | PTCARENOTE ---
No acute changes. Ambulated 380 feet on room air. See flowrecord. Assiste patient back to bed and right IJ cordis and sutures dc.
[2024-01-14] MEDS: FERRLECIT 110 MG IV (12:10)
--- NOTE | 2024-01-14 14:59 | W.PN.CD ---
Today's Communication / Plan
-
-Continue routine postoperative care as directed by CT Surgery.
-Recommend Lasix 20 mg PO daily.
-Amiodarone and metoprolol being held for now due to junctional rhythm/bradycardia; can reevaluate as outpatient.
-Plan is to resume Eliquis tomorrow, as per CT Surgery.
Impression / Plan
-
Impression/Plan: 78F with paroxysmal atrial fibrillation, moderate to severe mitral regurgitation, and moderate tricuspid regurgitation who presents for two valve repair.
#Mitral valve regurgitation/Tricuspid valve regurgitation
-Chronic.
-S/P #32 Mason physio 2 annuloplasty ring (serial #[id number]) to mitral valve and #30 Medtronic triad annuloplasty band (serial #[id number]) to tricuspid valve, 01/11/2024, Dr. Muller.
-Post valve repair EF unchanged without RWMA.
-Continue routine postoperative care as directed by CT Surgery.
-Recommend Lasix 20 mg PO daily.
#Paroxysmal atrial fibrillation
-Chronic, stable.
-S/P MAZE during the MVR/TVR.
-S/P LAAL with #35mm Atriclip (serial number [id number]).
-Amiodarone and metoprolol being held for now due to junctional rhythm/bradycardia; can reevaluate as outpatient.
-Plan is to resume Eliquis tomorrow, as per CT Surgery.
Subjective/Interval History:
No major events overnight. No cardiac complaints today.
DATA:
Cardiac Catheterization, 12/10/2023:
CONCLUSIONS:
1. Right dominant circulation with no coronary artery disease.
2. Moderately elevated filling pressures (LVEDP = 20 mmHg, PCWP = 20 mmHg at 71.2 kg).
3. 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
4. Severe mitral and tricuspid valve insufficiency by echocardiography.
NEO, 12/10/2023:
CONCLUSIONS
-Left ventricular ejection fraction is 55-60%.
-Severely dilated left atrium.
-Severely dilated right atrium.
-No thrombus detected in the left atrial appendage.
-Minimally thickened mitral valve leaflets with mild bileaflet prolapse.
-The MR ERO was 0.22 cm2 and calculated MR volume was 44 mL. Although these
measurements are consistent with moderate mitral regurgitation (possibly
underestimated secondary to sedation), upon visual assessment, there is likely
moderate to severe mitral regurgitation.
-Severe tricuspid regurgitation with Coanda effect present. Estimated pulmonary
arterial pressure was 100 mmHg, assuming a right atrial pressure of 3 mmHg;
severe pulmonary hypertension.
-Intact interatrial septum. No evidence for PFO via color-flow Doppler.
Physical Exam
Vital Signs/Labs
Vital Signs
Temp Pulse Resp BP Pulse Ox
98.6 F 71 18 114/78 98
01/14/24 12:04 01/14/24 12:07 01/14/24 12:04 01/14/24 12:07 01/14/24 12:07
01/13/24 01/14/24 01/15/24
06:59 06:59 06:59
Actual Weight 72.4 kg 73.4 kg
01/14/24 05:26
01/14/24 05:26
PT 16.9 Sec (11.4-14.6) H 01/11/24 10:56
INR 1.40 01/11/24 10:56
APTT 31.2 Sec (23.4-35.0) 01/11/24 10:56
Magnesium 2.1 mg/dl (1.6-2.3) 01/14/24 05:26
Physical Exam
Constitutional: No acute distress and Comfortable
EENT: Anicteric
Cardiovascular: Systolic murmur absent, Rhythm/rate is irregular, Pedal edema present (1+) and S1S2 is normal
Respiratory: Respiratory effort normal and Lungs clear to auscul.
GI: Soft
Neuro/Psych: AO x 3
Other: Skin (Warm, dry, intact)
Data Reviewed
-
Date of Service: January 14, 2024
EKG: Tracing Personally Visualized and interpreted (Telemetry: A-fib)
Medical Tests (PFT, Pathology etc): Discussed with Physician (CT Surgery team)
Labs: Labs Reviewed by me
Critical Care Time (in minutes): 37
--- NOTE | 2024-01-14 16:10 | PTCARENOTE ---
Ambulated 480ft. Room air. Vitals stable. See post activity vitals
[2024-01-14] MEDS: TYLENOL PO (16:18)
[2024-01-15] VITALS (8 sets, daily range): BP systolic 84–114; BP diastolic 45–74; PULSE 70; O2SAT 96–97
[2024-01-15 04:26] LABS: Hematocrit 29.3 % (37.0-47.0); Mean Corp Hgb Conc. 34.1 g/dL (33.0-37.0); Mean Corpuscular Hgb 31.3 pg (27.0-31.0); Mean Corpuscular Volume 91.6 fL (81.0-99.0); Mean Platelet Volume 11.8 fL (7.4-10.4); Platelet Count 97 10^3/uL (130-400); White Blood Cell Count 5.1 10^3/uL (4.8-10.8)
[2024-01-15 05:08] LABS: Blood Urea Nitrogen 15 mg/dl (7-17); Calcium 8.6 mg/dl (8.4-10.2); Carbon Dioxide 27 mmol/L (22-30); Chloride 106 mmol/L (98-107); Estimated Creatinine Clearance 76 ml/min; Glucose 86 mg/dl (70-99); Magnesium 2.2 mg/dl (1.6-2.3); Potassium 4.3 mmol/L (3.5-5.1); Sodium 136 mmol/L (135-145); eGFR > 60.00
--- NOTE | 2024-01-15 05:28 | W.PN.CT ---
Today's Communication / Plan
-
-pod #4
-no issues overnight. Looks and feels good, no complaints
-holding BB and Amio for junctional/shanel earlier- in nsr 60s-80s
-plans to restart Eliquis 01/14
-will need pw cut prior to d/c
-encourage IS, ambulate.
-possible d/c
Assessment / Plan
-
Assessment:
-S/p Standard sternotomy with aortic bicaval cannulation/Simple mitral valve repair [ring annuloplasty, 32 mm]/Tricuspid valve repair [30 mm band annuloplasty]/Open surgical ablation [left atrial maze using combination of RF ablation and cryo
ablation]/Left atrial appendage exclusion [35 mm clip], by Dr. Muller, 01/11/2024, pod#4
-Severe MR
-Severe TR
-PAF (on Eliquis @ home)
-Mild AI
-Dilated Asc. Aorta (3.3 cm)
-Small PFO
-LVEF 55% preop, improved to 65% postop per intraop NEO
-HTN
-HLD
-Ulcerative colitis
-Osteoporosis
-BCC S/p Moh's
-S/P b/l tubal ligation
-Acute postop blood loss/Anemia (stable without blood transfusion)
-Acute postop atelectasis
-Acute postop hypovolemia with subsequent hypervolemia
-Acute postop bradycardia requiring pacing postop- BB and Amio held
Discussed patient care with: Nursing and Care Team
Subjective
Procedure
S/p Standard sternotomy with aortic bicaval cannulation/Simple mitral valve repair [ring annuloplasty, 32 mm]/Tricuspid valve repair [30 mm band annuloplasty]/Open surgical ablation [left atrial maze using combination of RF ablation and cryo
ablation]/Left atrial appendage exclusion [35 mm clip], by Dr. Muller, 01/11/2024
-
Date of Service: January 15, 2024
Objective Data
-
PT 16.9 Sec (11.4-14.6) H 01/11/24 10:56
INR 1.40 01/11/24 10:56
APTT 31.2 Sec (23.4-35.0) 01/11/24 10:56
Vital Signs
Vital Signs
Temp Pulse Resp BP Pulse Ox
98.2 F 82 18 116/71 98
01/14/24 20:30 01/14/24 21:00 01/14/24 20:30 01/14/24 20:46 01/14/24 20:30
CT Intake/Output/Weight
01/14/24 01/14/24 01/15/24
06:59 18:59 06:59
Intake Total 100 / 230 645 / 645
Output Total 400 / 1100 750 / 1150 400 / 1150
Balance -300 / -870 -105 / -505 -400 / -505
SaO2: 98
Physical Exam
-
General: Awake and AOx3
Cardiovascular: Regular rate & rhythm, No Murmurs and No Rub
Respiratory: Rales (at bases. No wheeze) and Decreased Breath Sounds
Sternum: Stable
Incision: Clean, Dry and Intact
Abdomen: soft, nondistended, nontender + bowel sounds, + flatus, no BM
Extremities: Edema +1
Data Reviewed
-
Lab Results: Results Reviewed
Medications: Active Meds Reviewed
Chest X-Ray: Report Reviewed and Image Reviewed
ECG: Report Reviewed and Image Reviewed
[2024-01-15] MEDS: TYLENOL PO (06:49)
--- NOTE | 2024-01-15 08:00 | PTCARENOTE ---
resumed care of patient from previous RN. walking rounds completed. Patient oob in chair at time of assessment. on room air and tolerating well. 97%. is done to 1000. Denies pain at this time. For echo today and 2 view xray. possible home today,
--- NOTE | 2024-01-15 08:04 | W.DCSUMMARY ---
Discharge Summary
Discharge Data
Date of Admission: 01/11/24
Date of Discharge: 01/15/24
Total time spent discharging patient (in min): 35
-
Pending Results: No
Hospital Course
Primary care physician:
Dr. Herrera
Outpatient corporate tax manager:
Dr. Pickard
Inpatient consultants:
CBC, see wheeler
Procedures:
1. Simple mitral valve repair with #32 mm angioplasty ring and tricuspid valve repair with #30 mm band annuloplasty, left atrial appendage exclusion and left atrial maze
Primary Diagnosis:
1. 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
Secondary Diagnoses:
1. Hypertension
2. Hyperlipidemia
3. Ulcerative colitis
4. Osteoporosis
5. Tricuspid valve insufficiency
HPI: 78-year-old female with worsening shortness of breath and fatigue saw Dr. Muller in the office and presented electively for a mitral valve and tricuspid valve repair on 01/10.
Hospital course: Patient was electively admitted on 01/10 for a mitral valve and tricuspid valve repair with Dr. Muller. Postoperatively she returned to the CVICU on Levophed, Precedex, and insulin infusions. Precedex was weaned off and patient was
extubated by 1430. Patient was sinus bradycardia in the 40s therefore we began a pacing her in the 80s. On 7/2 postoperative day #1 patient remained atrial paced at 80, underneath the paced rhythm she was sinus bradycardia with PACs and junctional
escape beats. Beta-blockers and amiodarone were discontinued. Pleural chest tube was removed. On 7/3 postoperative day #2 patient's mediastinal chest tubes were removed. She remained in the same rhythm therefore beta-blockers and amiodarone were
continued to be on hold. She was diuresed with 20 mg of p.o. Lasix. On 01/13 postoperative day #3 she was diuresed with 40 mg of IV Lasix which she diuresed well from [place] and beta-blockers could continue to be on hold. On 01/14 postoperative day #4,
patient's repeat echocardiogram was stable. 2 view chest x-ray was stable. Eliquis was resumed and she was deemed stable for discharge.
Home medication changes:
See below
Discharge Plan
-
Patient Disposition: Home (Routine Discharge)
Discharge Diagnosis/Procedures: mitral & tricuspid valve repair/MAZE/BRET clip
Condition: Good
Diet: No restrictions
Activity: No strenuous activity
Driving Restrictions: Not until seen by your Dr
Bathing Restrictions: OK to Shower
Blood Work: BMP in 1 week post discharge
Other Services: Cardiac Rehab
Specialty Instructions: Weigh Daily- Call MD for wt gain/loss 3 lbs overnight/5 lbs in 1 week
Activity Restrictions/Additional Instructions:
ACTIVITY:
-No strenuous activity: no heavy lifting, pushing, pulling anything over 15 pounds for one month
-continue to use stairs as tolerated
DRIVING RESTRICTIONS:
-No driving for one month or until approved by your surgeon
WOUND CARE:
-Shower daily. Use soap & water.
-No lotions, creams or powders on incision area.
DIET:
-continue a low fat/low cholesterol diet.
-IF you are diabetic, continue carb controlled diet.
CARDIAC REHAB:
-Please make appointment to start in 5-6 weeks with your local hospital program. (See Cardiac Rehabilitation Discharge Booklet).
SPECIALTY INSTRUCTIONS:
-Weigh yourself daily. Call your physician for any weight gain/loss of 3 lbs overnight or 5 lbs in one week.
-REPORT any clicking noise or uneven appearance of your sternum to your surgeon immediately.
-If you smoke, you are instructed to quit. The [place] smoking hotline phone number is [phone]
Referrals:
CT Transitional Care Nurse [Outside] (The Cardiothoracic Transitional Care Nurse will call you to set up a visit in 1-2 days.)
[facility]. Cardiac Rehab [Outside] - 02/23/24 1:00 pm
(Cardiac Rehab Orientation appointment is on February 22 at 1pm.
The Cardiac Rehab gym is located on the first floor of the [facility].)
Nicole Xavier CRNP [Specified Professional Personl] - 02/29/24 2:20 pm
Kathleen Herrera CRNP [Family Provider] -
Mendel Muller MD [Active] - 02/18/24 12:45 pm
Additional Discharge Medication Instructions: Do not resume your metoprolol succinate until directed by a healthcare provider
Prescriptions:
New
cyclobenzaprine 10 mg Tablet
5 mg PO Q8HPRN PRN (Reason: muscle spasm) Qty: 15 0RF
acetaminophen 325 mg Tablet
650 mg PO Q4HPRN PRN (Reason: mild pain,headache,temp >101F ) Qty: 0 0RF
aspirin 81 mg Tablet,Chewable
81 mg PO DAILY Qty: 0 0RF
gabapentin 100 mg Capsule
100 mg PO TID Qty: 30 0RF
oxycodone 5 mg Tablet
2.5 mg PO Q4HPRN PRN (Reason: severe pain) Qty: 10 0RF
Continued
Calcium Magnesium plus D 400-167-133 mg-mg-unit Tablet
1 tab PO DAILY
furosemide [Lasix] 20 mg tablet
20 mg PO DAILY
Eliquis 5 mg tablet
5 mg PO BID
Discontinued
metoprolol succinate 25 mg Tablet Extended Release 24 Hr
25 mg PO QPM
Discharge Orders:
Discharge Patient (As Directed); Ordered 01/15/24
Ordered By: Lucy Neumann
Care Plan Goals
Care Plan Goals:
Problem: Readiness for enhanced knowledge related to diagnosis and treatment plan
Goal: Understand your diagnosis and treatment plan needs, including medications if applicable.
Instructions: Know your diagnosis, underlying causes and treatment plan options, including medications if applicable. Consult with your health care team to learn about your diagnosis and treatment plan, including medications if applicable.
Discharge Date and Time
Print Language: PANAMANIAN
--- NOTE | 2024-01-15 08:14 | W.PN.CD ---
Today's Communication / Plan
-
Continue furosemide 20 mg PO daily.
Restart apixaban 5 mg BID.
Ok to hold metoprolol and amiodarone at discharge. Low threshold for outpatient monitor.
Stable for outpatient follow up.
Discharge planning.
Impression / Plan
-
Impression/Plan: 78F with paroxysmal atrial fibrillation, moderate to severe mitral regurgitation, and moderate tricuspid regurgitation who presents for two valve repair.
#Mitral valve regurgitation/Tricuspid valve regurgitation
-Chronic.
-S/P #32 Mason physio 2 annuloplasty ring (serial #[id number]) to mitral valve and #30 Medtronic triad annuloplasty band (serial #[id number]) to tricuspid valve, 01/11/2024, Dr. Muller.
-Post valve repair EF unchanged without RWMA.
-Continue furosemide 20 mg PO daily.
-BMP in one week.
-Stable for outpatient follow up.
-Discharge planning.
#Paroxysmal atrial fibrillation
-Chronic, stable.
-S/P MAZE during the MVR/TVR.
-S/P LAAL with #35mm Atriclip (serial number [id number]).
-Amiodarone and metoprolol being held for now due to junctional rhythm/bradycardia; can reevaluate as outpatient.
-Resume apixaban.
Subjective/Interval History:
Furosemide 40 mg given yesterday.
Metoprolol and amiodarone held for episodes of sinus shanel/junctional rhythm.
Currently in NSR.
She feels well.
DATA:
Cardiac Catheterization, 12/10/2023:
CONCLUSIONS:
1. Right dominant circulation with no coronary artery disease.
2. Moderately elevated filling pressures (LVEDP = 20 mmHg, PCWP = 20 mmHg at 71.2 kg).
3. 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
4. Severe mitral and tricuspid valve insufficiency by echocardiography.
NEO, 12/10/2023:
CONCLUSIONS
-Left ventricular ejection fraction is 55-60%.
-Severely dilated left atrium.
-Severely dilated right atrium.
-No thrombus detected in the left atrial appendage.
-Minimally thickened mitral valve leaflets with mild bileaflet prolapse.
-The MR ERO was 0.22 cm2 and calculated MR volume was 44 mL. Although these
measurements are consistent with moderate mitral regurgitation (possibly
underestimated secondary to sedation), upon visual assessment, there is likely
moderate to severe mitral regurgitation.
-Severe tricuspid regurgitation with Coanda effect present. Estimated pulmonary
arterial pressure was 100 mmHg, assuming a right atrial pressure of 3 mmHg;
severe pulmonary hypertension.
-Intact interatrial septum. No evidence for PFO via color-flow Doppler.
Physical Exam
Vital Signs/Labs
Vital Signs
Temp Pulse Resp BP Pulse Ox
37.0 C 73 18 107/58 99
01/15/24 04:30 01/15/24 07:22 01/15/24 04:30 01/15/24 07:22 01/15/24 04:30
01/13/24 01/14/24 01/15/24
11:59 11:59 11:59
Actual Weight 72.4 kg 73.4 kg
01/15/24 04:15
01/15/24 04:15
PT 16.9 Sec (11.4-14.6) H 01/11/24 10:56
INR 1.40 01/11/24 10:56
APTT 31.2 Sec (23.4-35.0) 01/11/24 10:56
Magnesium 2.2 mg/dl (1.6-2.3) 01/15/24 04:15
Physical Exam
Constitutional: No acute distress and Comfortable
EENT: Anicteric and Moist mucous membranes
Cardiovascular: Rhythm & rate is regular, JVD pressure is normal, Pedal edema present, S1S2 is normal and Murmur/rub/gallop absent
Respiratory: Respiratory effort normal, Lungs clear to auscul., Wheeze Absent, Rhonchi Absent and Crackles Present (Mild basilar rales, L > R.)
GI: Soft, Distention absent, Flat, Non tender and Normal bowel sounds
Neuro/Psych: AO x 3
Data Reviewed
-
Date of Service: January 15, 2024
Medical Decision Making: Reviewed Test Results, Independent Historian Assessment and Test Interpretation
EKG: Tracing Personally Visualized and interpreted and Report Reviewed by me
Echo: Report Reviewed by me
X-Ray/CT/US/MRI/NUC/PET: Image Personally Visualized and interpreted and Report Reviewed by me
Medical Tests (PFT, Pathology etc): Report Reviewed by me
Labs: Labs Reviewed by me
Old Records: Reviewed
[2024-01-15] MEDS: MAGNESIUM OXIDE 500 MG PO (08:42)
[2024-01-15] MEDS: BACTROBAN 2% OINTMENT 1 APPLIC NASAL (08:42)
[2024-01-15] MEDS: PROTONIX 40 MG PO (08:42)
[2024-01-15] MEDS: SENOKOT-S 1 TABLET PO (08:42)
[2024-01-15] MEDS: NEURONTIN 100 MG PO (08:42)
[2024-01-15] MEDS: LOW STRENGTH ASPIRIN 81 MG PO (08:42)
[2024-01-15] MEDS: LASIX 20 MG PO (08:43)
[2024-01-15] MEDS: LIDOCAINE 4% PATCH TOPICAL (08:44)
[2024-01-15] MEDS: NSS IV (08:44)
--- NOTE | 2024-01-15 12:05 | PTCARENOTE ---
wires cut with dinesh PA at bedside. patient now showering.
== END 2024-01-15 13:26 | disposition home or self-care (01) | DRG 220 ==
LOC: CVICU 05:00
PROVIDERS: Anesthesiology; Nurse Practitioner; ADMITTING PHYSICIAN Thoracic Surgery (Cardiothoracic Vascular Surgery); FAMILY PHYSICIAN Nurse Practitioner; OTHER PHYSICIAN Internal Medicine Critical Care Medicine
PROC: 02580ZZ Destruction of Conduction Mechanism, Open Approach (ICD-10-PCS; 2024-01-11)
PROC: 02L70CK Occlusion of Left Atrial Appendage with Extraluminal Device, Open Approach (ICD-10-PCS; 2024-01-11)
PROC: 5A1221Z Performance of Cardiac Output, Continuous (ICD-10-PCS; 2024-01-11)
PROC: B24BZZ4 Ultrasonography of Heart with Aorta, Transesophageal (ICD-10-PCS; 2024-01-11)
PROC: 02UJ0JZ Supplement Tricuspid Valve with Synthetic Substitute, Open Approach (ICD-10-PCS; 2024-01-11)
PROC: 02UG0JZ Supplement Mitral Valve with Synthetic Substitute, Open Approach (ICD-10-PCS; 2024-01-11)
DX: I08.1 Rheumatic disorders of both mitral and tricuspid valves (principal); D62 Acute posthemorrhagic anemia; K51.90 Ulcerative colitis, unspecified, without complications; J98.11 Atelectasis; I48.0 Paroxysmal atrial fibrillation; I27.20 Pulmonary hypertension, unspecified; I10 Essential (primary) hypertension; E78.5 Hyperlipidemia, unspecified; M81.0 Age-related osteoporosis without current pathological fracture; E87.70 Fluid overload, unspecified; E86.1 Hypovolemia; R00.1 Bradycardia, unspecified; Z79.01 Long term (current) use of anticoagulants; Z79.899 Other long term (current) drug therapy
CPT/HCPCS: 93308; 36415; 71045; 71046; 80048; 80053; 81003; 81015; 82248; 82330; 82565; 82805; 82947; 82962; 83036; 83735; 84132; 84302; 84520; 85014; 85018; 85025; 85027; 85049; 85610; 85730; 86850; 86900; 86901; 86920; 87070; 93005; 93312; 93320; 93321; 93325; 93880; 94002; J2916; P9045

== ENCOUNTER 2024-03-11 06:50 | Outpatient (RCR) | payer BC, SELFPAY | END 2024-03-11 23:59 | disposition home or self-care (01) | LOC: CRHB 06:50 | PROVIDERS: ATTENDING PHYSICIAN Internal Medicine Cardiovascular Disease | DX: Z95.4 Presence of other heart-valve replacement (principal) | CPT/HCPCS: 93798 ==

== ENCOUNTER 2024-03-19 07:27 | Emergency (ER) | payer BC, SELFPAY ==
[2024-03-19 07:32] VITALS: BP 144/77
--- NOTE | 2024-03-19 08:19 | ED.GENMED ---
History of Present Illness
General
Chief Complaint: Blood Pressure Problem
Source: patient and records
Exam Limitations: none
Time Seen by Provider: 03/19/24 08:17
Nursing documentation reviewed up to this point in time: agreed with
History of Present Illness
History of Present Illness:
78-year-old female presents to the emergency room concerned that her blood pressure is elevated. It usually is 120s over 80s, but it has been 140s over 70s. She is concerned because she had tricuspid valve surgery and mitral valve surgery in January
by Dr. Muller. She denies any chest pain or shortness of breath
Past History
Past History
ED Past Medical History: None; Negative Asthma, HTN, Hypercholesterolemia or NIDDM
ED Past Surgical History: Gynecological (Tubel)
Social History
Tobacco: Non-smoker
Alcohol: None
Personal:
Living: with family
Review of Systems
Review of Systems
Allergies reviewed?: Yes
All Other Systems: Not applicable
Constitutional: Reports no symptoms
EENT: Reports no symptoms
Respiratory: Reports no symptoms
Cardiac: Reports no symptoms
ABD/GI: Reports no symptoms
: Reports no symptoms
Musculoskeletal: Reports no symptoms
Skin: Reports no symptoms
Neurological: Reports no symptoms
Endocrine: Reports no symptoms
Hematologic/Lymphatic: Reports no symptoms
Psychiatric: Reports no symptoms
Phy Exam
Physical Exam
Physical Exam:
Physical Exam
General: no apparent distress, not acutely ill
Neck: supple. no meningeal signs. normal posterior pharynx
Heart: s1/s2 regular rate and rhythm, no murmur. equal radial
pulses. Midline sternotomy scar.
HEENT: Pupils equal round reactive to light, EOMI
Lungs: no acute respiratory distress. clear bilaterally
Abdomen: normal bowel sounds. not tender. no CVAT
Neuro: alert and oriented. no focal neurological deficits cranial nerves II through XII intact
Skin: no rash
Psychiatric: well kept. interactive and cooperative
Extremities: no edema. no calf tenderness. negative homans. good distal pulses
Course
Orders/Labs/Results
Orders:
Orders
03/19/24 07:37
Electrocardiogram (*1) Urgent
Reason for Study: Hypertension, Benign
EKG- Treatment ONCE
Vital Signs
Initial and Last Documented VS:
Initial Vital Signs
Temp Pulse Resp BP Pulse Ox
98.1 F 89 16 144/77 98
03/19/24 07:32 03/19/24 07:03/19/24 07:32 03/19/24 07:32 03/19/24 07:32
Last Documented Vital Signs
Temp Pulse Resp BP Pulse Ox
98.1 F 89 16 144/77 98
03/19/24 07:32 03/19/24 07:32 03/19/24 07:32 03/19/24 07:32 03/19/24 07:32
MDM/Problems Addressed
Differential Diagnosis Includes:
dysrhythmia, hypertensive emergency
MDM/Problems Addressed:
78-year-old female with mildly elevated blood pressure. No indication for medication at this time. Patient is asymptomatic. Not hypertensive emergency or urgency. Discharged to follow-up with primary care. Return precautions given.
Chronic conditions affecting care: Cardiomyopathy
*Pulse Oximetry
Patient hypoxic: no
*EKG
Interpreted by ED Provider?: Yes
EKG Intrepretation Date: 03/19/24
EKG Intrepretation Time: 07:41
Interpretation: abnormal
Comparison EKG: changes noted
Heart Rate: 84
Rate: normal
Rhythm: sinus
[place]: left axis deviation
Interval: normal interval
QRS Pattern: normal QRS
Ischemia: no ischemia
*Solutions Architect Interpretation
Rate: Solutions Architect- N/A
*Critical Care Note
Total Time (30-74mins, 75-104mins- exclusive of procedures): Not Applicable
Data Reviewed
Review of Other/Old Records Reveals: Operative Reports (Reviewed note from Dr. Muller, operative note from 01/11/2024, sternotomy, mitral valve repair, tricuspid valve repair, open surgical ablation and left appendage exclusion)
Further Testing Considered But Not Given:
Labs and chest x-ray not indicated
Patient Management
Escalation/DeEscalation of care consider admission/obs:
Admit not indicated
ED Attending Note
-
Portions of this chart may have been created with voice recognition software.� Occasional wrong word or��sound alike� substitutions may have occurred due to the inherent limitations of voice recognition software.
Discharge Plan
Departure
Patient Disposition: Home (Routine Discharge)
Date of Disposition: 03/19/24
Time of Disposition: 08:49
Patient with high blood pressure during this ER visit?: Yes
Condition: Good
Discharge Problem:
Elevated blood pressure reading
Instructions: High Blood Pressure (DC), BLOOD PRESSURE
Prescriptions:
No Action
Calcium Magnesium plus D 400-167-133 mg-mg-unit Tablet
1 tab PO DAILY
furosemide [Lasix] 20 mg tablet
20 mg PO DAILY
Eliquis 5 mg tablet
5 mg PO BID
acetaminophen 325 mg Tablet
650 mg PO Q4HPRN PRN (Reason: mild pain,headache,temp >101F ) Qty: 0 0RF
aspirin 81 mg Tablet,Chewable
81 mg PO DAILY Qty: 0 0RF
Referrals:
Kathleen Herrera CRNP [Family Provider] - Call in 1-3 days for appt
Interventions
Interventions:
*Risk Screen - Suicide Last Done: 03/19/24 08:37
*General Assessment Last Done: 03/19/24 08:37
*Neglect/Abuse Screening Last Done: 03/19/24 08:37
*ED COVID-19 Vaccine History Last Done: 03/19/24 08:37
ED- Cardiac Assessment Last Done: 03/19/24 08:37
ED- Neurological Assessment Last Done: 03/19/24 08:37
ED- Pulmonary Assessment Last Done: 03/19/24 08:37
Discharge Date and Time
Print Language: ESTONIAN
[2024-03-19 08:28] VITALS: BP 149/75
[2024-03-19 08:37] VITALS: BMI 25.8
[2024-03-19 09:00] VITALS: BP 130/62
[2024-03-19 09:22] VITALS: BP 141/76
== END 2024-03-19 09:55 | disposition home or self-care (01) ==
LOC: EMR 07:27
PROVIDERS: EMERGENCY PHYSICIAN Emergency Medicine; FAMILY PHYSICIAN Nurse Practitioner
DX: I10 Essential (primary) hypertension (principal); I42.9 Cardiomyopathy, unspecified; I48.91 Unspecified atrial fibrillation; R01.1 Cardiac murmur, unspecified; Z85.828 Personal history of other malignant neoplasm of skin; Z79.82 Long term (current) use of aspirin; Z98.890 Other specified postprocedural states
CPT/HCPCS: 99283; 93005

== ENCOUNTER 2024-04-06 08:40 | Outpatient (RCR) | payer BC, SELFPAY | END 2024-04-06 23:59 | disposition home or self-care (01) | LOC: CRHB 08:40 | PROVIDERS: ATTENDING PHYSICIAN Internal Medicine Cardiovascular Disease | DX: Z95.4 Presence of other heart-valve replacement (principal) | CPT/HCPCS: 93798; G0422 ==

== ENCOUNTER 2024-05-11 08:46 | Outpatient (RCR) | payer BC, SELFPAY | END 2024-05-11 23:59 | disposition home or self-care (01) | LOC: CRHB 08:46 | PROVIDERS: ATTENDING PHYSICIAN Internal Medicine Cardiovascular Disease | DX: Z95.4 Presence of other heart-valve replacement (principal) | CPT/HCPCS: 93798 ==

== ENCOUNTER 2024-05-18 08:59 | Outpatient (RCR) | payer BC, SELFPAY | END 2024-05-18 23:59 | disposition home or self-care (01) | LOC: CRHB 08:59 | PROVIDERS: ATTENDING PHYSICIAN Internal Medicine Cardiovascular Disease; FAMILY PHYSICIAN Nurse Practitioner | DX: Z95.4 Presence of other heart-valve replacement (principal) | CPT/HCPCS: 93797; 93798 ==

== ENCOUNTER → 2024-08-22 13:46 | Outpatient (REF) | payer BC, SELFPAY | LOC: RCS 13:46 | PROVIDERS: ATTENDING PHYSICIAN Thoracic Surgery (Cardiothoracic Vascular Surgery); FAMILY PHYSICIAN Nurse Practitioner; OTHER PHYSICIAN Internal Medicine Cardiovascular Disease | DX: Z98.890 Other specified postprocedural states (principal) | CPT/HCPCS: 93306 ==

== ENCOUNTER → 2024-09-05 06:45 | Outpatient (REF) | payer BC, SELFPAY | LOC: RAD 06:45 | PROVIDERS: ATTENDING PHYSICIAN Nurse Practitioner; OTHER PHYSICIAN Internal Medicine Cardiovascular Disease; REFERRING PHYSICIAN Internal Medicine Cardiovascular Disease | DX: Z00.01 Encounter for general adult medical examination with abnormal findings (principal); R91.1 Solitary pulmonary nodule | CPT/HCPCS: 71260; Q9967 ==

== ENCOUNTER → 2025-05-11 11:03 | Outpatient (REF) | payer BC, SELFPAY | LOC: WDC 11:03 | PROVIDERS: ATTENDING PHYSICIAN Obstetrics & Gynecology Gynecology; FAMILY PHYSICIAN Nurse Practitioner | DX: Z12.31 Encounter for screening mammogram for malignant neoplasm of breast (principal) | CPT/HCPCS: 77063; 77067 ==